=== PATIENT | female | born 1955 | race Hispanic/Latino ===

== ENCOUNTER 2017-05-27 03:29 | Inpatient (IN) | payer SELFPAY ==
[2017-05-27 03:30] VITALS: BMI 18.8
--- NOTE | 2017-05-27 03:44 | ED PDOC ---
Arrival/HPI - General Time Seen by Provider: 05/27/17 03:35 Historian: Patient - History of Present Illness Narrative History of Present Illness (Text): 05/27/17 03:42 Nasrin Pacheco is a 62 year old female who was found wandering the streets, was brought to the emergency department by EMS. Consistent with previous charts , patient is a poor historian. Patient has a history of schizophrenia and is acting bizarrely in the emergency department. States she feels like "walking around like ." Denies any somatic complaints. Symptom Onset: Gradual Symptom Course: Worsening Activities at Onset: Light Past Medical History - Provider Review Nursing Documentation Reviewed: Yes - Past History Past History: Unable to Obtain - Infectious Disease Hx of Infectious Diseases: None - Past Medical History Past Medical History: Unable to Obtain - Cardiac Hx Hypertension: No - Pulmonary Hx Tuberculosis: No - Neurological Hx Seizures: No - HEENT Hx HEENT Disorder: No - Renal Hx Renal Disorder: No - Endocrine/Metabolic Hx Endocrine Disorders: No - Hematological/Oncological Hx Cancer: No - Integumentary Hx Dermatological Disorder: No - Musculoskeletal/Rheumatological Hx Musculoskeletal Disorders: No Hx Falls: No - Gastrointestinal Hx Gastrointestinal Disorders: No - Genitourinary/Gynecological Hx Sexually Transmitted Diseases: No - Psychiatric Hx Depression: No Hx Schizophrenia: Yes Hx Substance Use: Yes - Past Surgical History Past Surgical History: Unable to Obtain - Surgical History Other/Comment: PT REPORTS HAVING SURGERY ON HER INSIDES. - Anesthesia Hx Anesthesia: No - Suicidal Assessment Feels Threatened In Home Enviroment: No Family/Social History - Physician Review Nursing Documentation Reviewed: Yes Family/Social History: No Known Family HX Smoking Status: Current Some Days Smoker Hx Alcohol Use: No Hx Substance Use: Yes Allergies/Home Meds Allergies/Adverse Reactions: Allergies No Known Allergies Allergy (Verified 05/26/17 04:50) Review of Systems - Physician Review All systems were reviewed & negative as marked: Yes - Review of Systems Constitutional: Normal. absent: Fatigue, Fevers Respiratory: Normal. absent: SOB, Cough, Sputum Cardiovascular: Normal Gastrointestinal: Normal Neurological: Normal. absent: Headache, Dizziness Psychiatric: Other (Schizophrenic ) Physical Exam Vital Signs Reviewed: Yes Vital Signs Temp Pulse Resp BP Pulse Ox 05/27/17 03:30 98.2 F 65 18 107/64 95 Temperature: Afebrile Blood Pressure: Normal Pulse: Regular Respiratory Rate: Normal Appearance: Positive for: Well-Appearing, Non-Toxic, Comfortable Pain Distress: None Mental Status: Positive for: Alert and Oriented X 3 - Systems Exam Head: Present: Atraumatic, Normocephalic Pupils: Present: PERRL Extroacular Muscles: Present: EOMI Conjunctiva: Present: Normal Mouth: Present: Moist Mucous Membranes Neck: Present: Normal Range of Motion Respiratory/Chest: Present: Clear to Auscultation, Good Air Exchange. No: Respiratory Distress, Accessory Muscle Use Cardiovascular: Present: Regular Rate and Rhythm, Normal S1, S2. No: Murmurs Abdomen: Present: Normal Bowel Sounds. No: Tenderness, Distention, Peritoneal Signs Upper Extremity: Present: Normal Inspection. No: Cyanosis, Edema Lower Extremity: Present: Normal Inspection. No: Edema Neurological: Present: GCS=15, CN II-XII Intact, Motor Func Grossly Intact, Normal Sensory Function Skin: Present: Warm, Dry, Normal Color. No: Rashes Psychiatric: Present: Alert, Oriented x 3 Medical Decision Making ED Course and Treatment: 05/27/17 03:49 Impression: A 62 year old female who presents to the emergency department for bizarre behavior. Plan: -- EKG -- Labs -- Alcohol level -- Drug screen -- CXR Progress Notes: - Lab Interpretations Lab Results: 05/27/17 04:20 05/27/17 04:20 Lab Results 05/27/17 04:20: WBC 6.1, RBC 4.00, Hgb 12.5, Hct 36.9, MCV 92.3, MCH 31.3, MCHC 33.9, RDW 14.3, Plt Count 194, MPV 11.6 H 05/27/17 04:20: Alcohol, Quantitative < 10 05/27/17 04:20: Sodium 135, Potassium 3.2 L, Chloride 100, Carbon Dioxide 20 L, Anion Gap 18, BUN 13, Creatinine 0.7, Est GFR ( Amer) > 60, Est GFR (Non- Af Amer) > 60, Random Glucose 96, Calcium 9.5, Total Bilirubin 1.1, AST 21, ALT 26, Alkaline Phosphatase 68, Total Protein 6.8, Albumin 4.1, Globulin 2.7, Albumin/Globulin Ratio 1.5 - RAD Interpretation Narrative RAD Interpretations (Text): 05/27/17 06:11 CXR- No acute process Radiology Orders: 05/27/17 03:43 CHEST PORTABLE [RAD] Stat Air Box Tester: ED Physician - EKG Interpretation EKG Interpretation (Text): 05/27/17 06:34 EKG- NSR @ 75,wavy baseline,no acute changes Interpreted by ED Physician: Yes Type: 12 lead EKG - Transfer of Care Patient signed out to Dr:: Chacha Pending Labs:: Medical clearance/PES evaluation/final disposition - Scribe Statement The provider has reviewed the documentation as recorded by the Sourave Aldo Granados Provider Attestation: All medical record entries made by the Sarah were at my direction and personally dictated by me. I have reviewed the chart and agree that the record accurately reflects my personal performance of the history, physical exam, medical decision making, and the department course for this patient. I have also personally directed, reviewed, and agree with the discharge instructions and disposition. Disposition/Present on Arrival - Present on Arrival Any Indicators Present on Arrival: No History of DVT/PE: No History of Uncontrolled Diabetes: No Urinary Catheter: No History Surgical Site Infection Following: None - Disposition Have Diagnosis and Disposition been Completed?: No Diagnosis: Schizophrenia Disposition Time: 07:00 Patient Problems: Current Active Problems Problem Status Onset Schizophrenia Acute Condition: STABLE
[2017-05-27 05:09] LABS: ALB/GLOB RATIO 1.5 (1.1-1.8); ALBUMIN 4.1 g/dL (3.0-4.8); ALT/SGPT 26 U/L (7-56); AST/SGOT 21 U/L (15-39); BLOOD UREA NITROGEN 13 mg/dL (7-21); CALCIUM 9.5 mg/dL (8.4-10.5); GFR AFRICAN-AMERICAN > 60; GFR NON-AFRICAN AMERICAN > 60
[2017-05-27 05:14] LABS: HEMOGLOBIN 12.5 gm/dL (12.0-16.0); MEAN CELL VOLUME 92.3 fL (80.0-105.0); MEAN CORPUSCULAR HEMOGLOBIN 31.3 pg (25.0-35.0); MEAN CORPUSCULAR HGB CONC 33.9 g/dl (31.0-37.0); MEAN PLATELET VOLUME 11.6 fl (7.0-11.0); RED CELL DISTRIBUTION WIDTH 14.3 % (11.5-14.5); WHITE BLOOD COUNT 6.1 10^3/ul (4.5-11.0)
[2017-05-27 08:28] VITALS: O2SAT 98
[2017-05-27] MEDS ORDERED: Potassium Chloride 20 mEq ER Tab PO STA (08:31)
--- NOTE | 2017-05-27 08:45 | CARD ---
APPROVED REPORT EKG Measurement Heart [id number] DC [id number] <Conclusion> Normal sinus rhythm Normal ECG
[2017-05-27] MEDS ORDERED: Divalproex 250 mg DR (BID formulation) PO SCH (09:15)
--- NOTE | 2017-05-27 11:01 | RAD ---
HISTORY: medical clearance COMPARISON: 05/24/2013 FINDINGS: LUNGS: No active pulmonary disease. PLEURA: No significant pleural effusion identified, no pneumothorax apparent. CARDIOVASCULAR: Normal. OSSEOUS STRUCTURES: No significant abnormalities. VISUALIZED UPPER ABDOMEN: Normal. OTHER FINDINGS: None. IMPRESSION: No active disease.
--- NOTE | 2017-05-27 11:36 | PCM.PSYCH ---
Initial Psychiatric Evaluation - Initial Psychiatric Evaluation Type of Admission: Voluntary Legal Status: Capacity (Patient has capacity to sign consent for treatment) Chief Complaint (in patient's own words): "A-A-A-A-A, you need to call me Nicolas, I need my potassium, I am not psych case , I am medical,,,, AAAAAAA" Patient's Reaction to Hospitalization: pt was admitted for evaluation of psychosis, inability to function, was disorganized in the community, was covered with feces, needs further evaluation and observation. pt does not feel she has mental illness, does not feel she needs to be on medications, no insight/poor judgment. 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 Pt obviously needs further evaluation and stabilization, meds resumption and titration. this wrier attempted to speak to the pt, pt presented to have very poor hygiene , poor ADLs most likely due to her psychosis, pt was agitated, was screaming out loud "A-A_A_A_A_A_A_ you need to call me NICOLAS, I am not psych patient, I need my potassium", pt also was screaming "A_A_A_A_A_ I don't want to talk to the doctor, I did not sign myself A_A_A_A_A you will poison me...." there is not option to have a meaningful conversation with her. pt presented to be in danger to self and was not able to calm down, other patients were scared, pt was medicated with Thorazine 50mg IM with good response. pt obviously paranoid/psychotic/responding to internal stimuli. initially refused to take any meds, which were confirmed from the previous admission Past psychiatric h/o: patient has long history of mental illness, as per Dr. Escalera's note in 2013 patient had history of been admitted involuntary in [facility] , patient has chronic noncompliance with the medications nd follow-up appointments, patient was on the following medications: Risperdal 3 mg 2 times a day Cogentin 0.5 mg twice a day Depakote 750 mg at the morning time in 1000 mg at the nighttime pt denied smoking, denied alcohol consumption, denied using drugs, but it is ?, as per h/o pt has h/o substance use. past medical h/o: denied, K was low, K supplementation offered in ED, pt refused , now is screaming demanding to have meds. D/w . 05/27/17 04:20 05/27/17 04:20 Lab Results 05/27/17 04:20: WBC 6.1, RBC 4.00, Hgb 12.5, Hct 36.9, MCV 92.3, MCH 31.3, MCHC 33.9, RDW 14.3, Plt Count 194, MPV 11.6 H 05/27/17 04:20: Alcohol, Quantitative < 10 05/27/17 04:20: Sodium 135, Potassium 3.2 L, Chloride 100, Carbon Dioxide 20 L, Anion Gap 18, BUN 13, Creatinine 0.7, Est GFR ( Amer) > 60, Est GFR (Non- Af Amer) > 60, Random Glucose 96, Calcium 9.5, Total Bilirubin 1.1, AST 21, ALT 26, Alkaline Phosphatase 68, Total Protein 6.8, Albumin 4.1, Globulin 2.7, Albumin/Globulin Ratio 1.5 Vital Signs Temp Pulse Resp BP Pulse Ox 05/27/17 08:00 78 16 122/61 98 05/27/17 05:30 70 16 112/68 97 05/27/17 03:30 98.2 F 65 18 107/64 95 Current Medications: Active Medications Generic Name Dose Route Start Last Admin Trade Name Freq PRN Reason Stop Dose Admin Benztropine Mesylate 0.5 mg 05/27/17 13:00 Cogentin PO TID CARL Diphenhydramine HCl 50 mg 05/27/17 09:15 Benadryl PO HS PRN Insomnia Divalproex Sodium 250 mg 05/27/17 09:15 Taj Carrillo (*Bid*) PO TID CARL Protocol Risperidone 1 mg 05/27/17 13:00 Risperdal Tab PO TID CARL Protocol this auto service writer attempted to discuss medications and risk/benefits and alternatives with pt, ? comprehension. Past Psychiatric History - Past Psychiatric History Previous Treatment History: Inpatient Prior Professional Help: see HPI Prior Psychiatric Treatment: see hPI At what hospital: see HPI Duration: see HPI Nature of Treatment: see HPI Explanation of prior treatment: see HPI History of Abuse: unable to obtain, pt is agitated, needed to be medicated History of ETOH/Drug Use: see hPI History of Family Illness: unable to obtain Pertinent Medical Hx (Current Medical&Sleep Prob, Allergies): Allergies Allergy/AdvReac Type Severity Reaction Status Date / Time No Known Allergies Allergy Verified 05/26/17 04:50 Benztropine [Cogentin] 1 mg PO BID #60 tab 04/16/17 Divalproex [Depakote DR] 500 mg PO BID #60 tcp 04/16/17 Divalproex [Depakote DR] 500 mg PO HS #30 tcp 04/16/17 fluPHENAZine [Prolixin] 10 mg PO BID #60 tab 04/16/17 risperiDONE [RisperDAL Tab] 3 mg PO BID #60 tab 04/16/17 traZODone [Desyrel] 50 mg PO HS #30 tab 04/16/17 Benztropine [Cogentin] 1 mg PO BID #60 tab 05/15/17 OXcarbazepine [Trileptal] 300 mg PO BID #60 tab 05/15/17 fluPHENAZine [Prolixin] 10 mg PO BID #60 tab 05/15/17 traZODone [Desyrel] 50 mg PO HS PRN #30 tab 05/15/17 Review of Systems - Review of Systems Systems not reviewed;Unavailable: Acuity of Condition - EENT Eyes: As Per HPI Ears: As Per HPI Nose/Mouth/Throat: As Per HPI - Breasts Breasts: As Per HPI - Cardiovascular Cardiovascular: As Per HPI - Respiratory Respiratory: As Per HPI - Gastrointestinal Gastrointestinal: As Per HPI - Genitourinary Genitourinary: As Per HPI - Reproductive: Female Reproductive:Female: As Per HPI - Menstruation Menstruation: As Per HPI - Musculoskeletal Musculoskeletal: As Par HPI - Integumentary Integumentary: As Per HPI - Neurological Neurological: As Per HPI - Psychiatric Psychiatric: As Per HPI - Endocrine Endocrine: As Per HPI - Hematologic/Lymphatic Hematologic: As Per HPI Mental Status Examination - Personal Presentation Personal Presentation: Looks younger than stated age - Affect Affect: Other (agitated, angry) - Motor Activity Motor Activity: Psychomotor Agitation - Reliability in Providing Information Reliability in Providing Information: Poor, due to alteration in thoughts, Poor , due to altered mood, Poor, due to cognitve impairment - Speech Speech: Disorganized, Irrelevant, Tangential - Mood Mood: Other ("aaaaa leave me alone") - Formal Thought Process Formal Thought Process: Hallucinations, Delusions, Paranoia, Loosening of associations, Circumstantial - Hallucinations/Delusions Hallucinations: Auditory Delusions: Granduer, Persecution - Obsessions/Compulsions Obsessions: None Compulsions: None - Cognitive Functions Orientation: Person Sensorium: Alert Attention/Concentration: Easily distracted Abstract Thinking: Ajo Estimate of Intelligence: Below average Judgement: Intact, as evidence by: Insight regarding need for hospitalization - Risk Risk: Suicidal, Self-mutilation, Diminished functioning - Limitations Limitations: Other (pt is homeless, noncompliant with meds, poor social support) DSM 5 DX - DSM 5 DSM 5 Diagnosis: r/o schizophrenia, paranoid type r/o schizoaffective - Recommended/Plan of Treatment Treatment Recommendations and Plan of Treatment: milieu, structure, supportive therapy will resume depakote 250 po tid for mood stabilzation will start cogentin 0.5 mg po tid for EPS symptoms will start Risperdal 1mg po tid for psychosis (pt is not neuroleptrically naive , could be initiated with higher doses) pt was on Prolixin in the past (10mg po bid), risperdal 3mg po bid, h/o being on depakote 500mg bid, trazodone 50mg hs, h/o trileptal 300mg bid, will consider to resume these meds accordingly d/w will f/u on labs SW evaluation for homelessness will monitor closely will give PRN medications. Projected ELOS: 10 days Prognosis: guarded Discharge Plan and Discharge Criteria: Pt will be not depressed or manic, will be more hopeful, will be not psychotic or anxious, will be tolerating medications well, will not have major side effects, will be able to function, will not pose threat to self or others. - Smoking Cessation Smoking Cessation Initiated: No Reason for not providing: pt was agitated, this auto service writer did not have an option to have meaningful cons
[2017-05-27] MEDS ORDERED: Potassium Chloride 20 mEq ER Tab PO ONE ×2 (18:00)
--- NOTE | 2017-05-27 18:34 | PCM.BM ---
<SimónAsha - Last Filed: 05/27/17 18:30> Treatment Plan Problems - Problems identified on initial assessmt psychotic delusions Date Initiated: 05/27/17 Time Initiated: 13:00 Assessment reference: NA Status: Active Priority: 1 homelessness Date Initiated: 05/27/17 Time Initiated: 18:00 Assessment reference: NA Status: Active Treatment assets and liabiliti Patient Assests: ADL independent, negotiates basic needs Patient Liabilities: live alone, financial problems, poor support system - Milieu Protocol Maintain good personal hygiene: every shift Encourage regular showers, every shift Remind patient to perform daily oral care, every shift Assist patient to perform ADL's Maintain personal safety: every shift Educate patient to report safety concerns to staff, every shift Monitor environment for contraband/sharps Medication safety: Monitor for expected outcome, potential side effects: every shift, Assess barriers to learning: every shift, Assess readiness for medication education: every shift Milieu Narrative: milieu, structure, supportive therapy will resume depakote 250 po tid for mood stabilzation will start cogentin 0.5 mg po tid for EPS symptoms will start Risperdal 1mg po tid for psychosis (pt is not neuroleptrically naive , could be initiated with higher doses) pt was on Prolixin in the past (10mg po bid), risperdal 3mg po bid, h/o being on depakote 500mg bid, trazodone 50mg hs, h/o trileptal 300mg bid, will consider to resume these meds accordingly d/w will f/u on labs SW evaluation for homelessness will monitor closely will give PRN medications. Family Contact - Goals for Treatment Patient goals for treatment: " I am sick and homeless, I lived in the street" Discharge/Continuing Care - Discharge Discharge Criteria: Free of Suicidal thoughts, Free of paranoid thoughts, Free of agitation, Normal sleep pattern, Ability to care for self - Additional Comments milieu, structure, supportive therapy will resume depakote 250 po tid for mood stabilzation will start cogentin 0.5 mg po tid for EPS symptoms will start Risperdal 1mg po tid for psychosis (pt is not neuroleptrically naive , could be initiated with higher doses) pt was on Prolixin in the past (10mg po bid), risperdal 3mg po bid, h/o being on depakote 500mg bid, trazodone 50mg hs, h/o trileptal 300mg bid, will consider to resume these meds accordingly d/w will f/u on labs SW evaluation for homelessness will monitor closely will give PRN medications. - Treatment Team Participation Patient/Family/SO Statement: milieu, structure, supportive therapy will resume depakote 250 po tid for mood stabilzation will start cogentin 0.5 mg po tid for EPS symptoms will start Risperdal 1mg po tid for psychosis (pt is not neuroleptrically naive , could be initiated with higher doses) pt was on Prolixin in the past (10mg po bid), risperdal 3mg po bid, h/o being on depakote 500mg bid, trazodone 50mg hs, h/o trileptal 300mg bid, will consider to resume these meds accordingly d/w will f/u on labs SW evaluation for homelessness will monitor closely will give PRN medications. <Efrain Shultz - Last Filed: 05/28/17 11:50> Discharge/Continuing Care - Education Needs Education Needs: Family Medication, Family Diagnosis/Disease Process, Family Coping Skills, Family Anger Management skills, Family Activities of Daily Living , Family Health Practices/Safety, Family Personal Hygiene/Grooming, Family Aftercare Safety Plan <Mary Ann Amaral - Last Filed: 05/29/17 08:34> Family Contact Family involvement: No known Family/SO (Patient has no known family.)
[2017-05-28 07:40] LABS: BLOOD UREA NITROGEN 10 mg/dL (7-21); CALCIUM 8.7 mg/dL (8.4-10.5); GFR AFRICAN-AMERICAN > 60; GFR NON-AFRICAN AMERICAN > 60
--- NOTE | 2017-05-28 11:36 | CP.PCM.CON ---
<ARY COLEMAN - Last Filed: 05/28/17 17:15> History of Present Illness - History of Present Illness History of Present Illness: Medicine Consult Note: 62 F with past medical hx of mental illness, most likely schizophrenia spectrum disorder, and multiple psychiatric admissions presents as consult for medical management. Pt is homeless and was found wandering the streets, was brought to the emergency department by EMS. Pt is still confused with psychotic type symptoms, therefore HPI limited. Pt denied any medical problems. Pt denied n/v/f , cp, sob, abdominal pain. Review of Systems - Review of Systems All systems: reviewed and no additional remarkable complaints except (as per HPI ) Past Patient History - Infectious Disease Hx of Infectious Diseases: None - Past Social History Smoking Status: Current Some Days Smoker - CARDIAC Hx Hypertension: No - PULMONARY Hx Respiratory Disorders: No Hx Tuberculosis: No - NEUROLOGICAL Hx Seizures: No - HEENT Hx HEENT Problems: No - RENAL Hx Chronic Kidney Disease: No - ENDOCRINE/METABOLIC Hx Endocrine Disorders: No - HEMATOLOGICAL/ONCOLOGICAL Hx Cancer: No - INTEGUMENTARY Hx Dermatological Problems: No - MUSCULOSKELETAL/RHEUMATOLOGICAL Hx Musculoskeletal Disorders: No Hx Falls: No - GASTROINTESTINAL Hx Gastrointestinal Disorders: No - GENITOURINARY/GYNECOLOGICAL Hx Sexually Transmitted Disorders: No - PSYCHIATRIC Hx Substance Use: Yes - SURGICAL HISTORY Other/Comment: PT REPORTS HAVING SURGERY ON HER INSIDES. - ANESTHESIA Hx Anesthesia: No Meds Allergies/Adverse Reactions: Allergies Allergy/AdvReac Type Severity Reaction Status Date / Time No Known Allergies Allergy Verified 05/27/17 19:06 - Medications Medications: Current Medications Benztropine Mesylate (Cogentin) 0.5 mg PO TID CARL Last Admin: 05/28/17 08:45 Dose: 0.5 mg Chlorpromazine (Thorazine) 50 mg IM Q6H PRN; Protocol PRN Reason: severe agitation and psychosis Last Admin: 05/27/17 09:42 Dose: 50 mg Diphenhydramine HCl (Benadryl) 50 mg PO HS PRN PRN Reason: Insomnia Famotidine (Pepcid) 20 mg PO HS CARL Risperidone (Risperdal Tab) 1 mg PO TID CARL PRN Reason: Protocol Last Admin: 05/28/17 08:43 Dose: 1 mg Trazodone HCl (Desyrel) 50 mg PO HS CARL Last Admin: 05/27/17 22:07 Dose: Not Given Valproate Sodium (Depakene) 250 mg PO TID COUNT INCLUDES THE [facility] Last Admin: 05/28/17 08:43 Dose: 250 mg Physical Exam - Constitutional Appears: Agitated - Head Exam Head Exam: NORMAL INSPECTION - Eye Exam Eye Exam: EOMI, Normal appearance - ENT Exam ENT Exam: Mucous Membranes Moist - Respiratory Exam Respiratory Exam: Clear to Auscultation Bilateral - Cardiovascular Exam Cardiovascular Exam: REGULAR RHYTHM, +S1, +S2 - GI/Abdominal Exam GI & Abdominal Exam: Normal Bowel Sounds, Soft - Neurological Exam Neurological exam: Alert, Oriented x3 - Psychiatric Exam Psychiatric exam: Agitated Results - Vital Signs Recent Vital Signs: Last Vital Signs Temp 98.2 F 05/27/17 03:30 Pulse 60 05/27/17 17:55 Resp 18 05/27/17 17:55 BP 122/61 05/27/17 08:00 Pulse Ox 98 05/27/17 08:00 - Labs Result Diagrams: 05/27/17 04:20 05/28/17 07:00 Labs: Laboratory Results - last 24 hr 05/28/17 07:00 Sodium 141 Potassium 3.8 Chloride 108 H Carbon Dioxide 26 Anion Gap 11 BUN 10 Creatinine 0.6 Est GFR ( Amer) > 60 Est GFR (Non-Af Amer) > 60 Random Glucose 83 Calcium 8.7 Assessment & Plan - Assessment and Plan (Free Text) Assessment: 62F admitted for psychosis and inability to function 1. Psychosis -Treatment plan per psych 2. Hypokalemia - resolved -Corrected with Potassium Chloride 40 mg PO 3. GI/DVT PPx -Pepcid -Pt ambulatory Patient was seen and discussed in detail with Dr. Bain. <Wes Bain - Last Filed: 05/28/17 17:39> Meds - Medications Medications: Current Medications Benztropine Mesylate (Cogentin) 0.5 mg PO TID COUNT INCLUDES THE [facility] Last Admin: 05/28/17 17:28 Dose: 0.5 mg Diphenhydramine HCl (Benadryl) 50 mg PO HS PRN PRN Reason: Insomnia Diphenhydramine HCl (Benadryl) 50 mg PO Q6H PRN PRN Reason: Agitation Last Admin: 05/28/17 12:03 Dose: 50 mg Famotidine (Pepcid) 20 mg PO HS CARL Haloperidol (Haldol) 5 mg PO Q6H PRN; Protocol PRN Reason: Agitation Last Admin: 05/28/17 12:03 Dose: 5 mg Lorazepam (Ativan) 2 mg PO Q6H PRN; Protocol PRN Reason: Agitation Last Admin: 05/28/17 12:03 Dose: 2 mg Risperidone (Risperdal Tab) 1 mg PO TID CARL PRN Reason: Protocol Last Admin: 05/28/17 17:28 Dose: 1 mg Trazodone HCl (Desyrel) 50 mg PO HS CARL Last Admin: 05/27/17 22:07 Dose: Not Given Valproate Sodium (Depakene) 500 mg PO [facility] COUNT INCLUDES THE [facility] Results - Vital Signs Recent Vital Signs: Last Vital Signs Temp 98.2 F 05/27/17 03:30 Pulse 60 05/27/17 17:55 Resp 18 05/27/17 17:55 BP 122/61 05/27/17 08:00 Pulse Ox 98 05/27/17 08:00 - Labs Result Diagrams: 05/27/17 04:20 05/28/17 07:00 Labs: Laboratory Results - last 24 hr 05/28/17 07:00 Sodium 141 Potassium 3.8 Chloride 108 H Carbon Dioxide 26 Anion Gap 11 BUN 10 Creatinine 0.6 Est GFR ( Amer) > 60 Est GFR (Non-Af Amer) > 60 Random Glucose 83 Calcium 8.7 Attending/Attestation - Attestation I have personally seen and examined this patient.: Yes I have fully participated in the care of the patient.: Yes I have reviewed all pertinent clinical information: Yes Notes (Text): 05/28/17 17:35 MEDICAL CONSULTATION 62 year old female with past medical history of ?schizophrenia who is currently admitted for evaluation of psychosis and paranoia. History was reviewed with resident. Further history is limited due to psychotic symptoms (patient yells and screams at times; refuses exam and questions). Continue with management as per psychiatrist. Labs revealed initial low potassium of 3.4 which was repleted yesterday. Repeat potassium today was okay. At this time we will sign off. Please feel free to re-consult as needed. Wes Bain MD Hospitalist.
--- NOTE | 2017-05-28 13:25 | PCM.BM ---
- Diagnosis (1) Schizophrenia Status: Acute Interventions: 05/27/17 13:14 Psychoeducation/psychotherapy Psychopharmacology/adjustment of medications as needed/ monitoring possible side effects Evaluate pt on daily basis Compliance with medications and follow up appointments Long acting medication if pt is noncompliant with pill form Suicide and homicide risk assessment and prevention, coping strategies, safety plan Relapse prevention Reduction of symptoms Improve functional status Possible assertive community treatment Cognitive behavioral therapy Family intervention Possible social skill training as outpatient (2) History of medical problems Status: Acute Interventions: 05/27/17 13:15 Pt will be seen by medical team as needed Medications will be confirmed and resumed Additional consultation by specialists as needed Lab work as needed (CBC, CMP, TSH, free T4, UA, Urine test for females as needed) CXR as needed EKG Physical therapy valuation as needed - Milieu Protocol Milieu Narrative: milieu, structure, supportive therapy will resume depakote 250 po tid for mood stabilzation will start cogentin 0.5 mg po tid for EPS symptoms will start Risperdal 1mg po tid for psychosis (pt is not neuroleptrically naive , could be initiated with higher doses) pt was on Prolixin in the past (10mg po bid), risperdal 3mg po bid, h/o being on depakote 500mg bid, trazodone 50mg hs, h/o trileptal 300mg bid, will consider to resume these meds accordingly d/w will f/u on labs SW evaluation for homelessness will monitor closely will give PRN medications. Discharge/Continuing Care - Additional Comments milieu, structure, supportive therapy will resume depakote 250 po tid for mood stabilzation will start cogentin 0.5 mg po tid for EPS symptoms will start Risperdal 1mg po tid for psychosis (pt is not neuroleptrically naive , could be initiated with higher doses) pt was on Prolixin in the past (10mg po bid), risperdal 3mg po bid, h/o being on depakote 500mg bid, trazodone 50mg hs, h/o trileptal 300mg bid, will consider to resume these meds accordingly d/w will f/u on labs SW evaluation for homelessness will monitor closely will give PRN medications. - Treatment Team Participation Patient/Family/SO Statement: milieu, structure, supportive therapy will resume depakote 250 po tid for mood stabilzation will start cogentin 0.5 mg po tid for EPS symptoms will start Risperdal 1mg po tid for psychosis (pt is not neuroleptrically naive , could be initiated with higher doses) pt was on Prolixin in the past (10mg po bid), risperdal 3mg po bid, h/o being on depakote 500mg bid, trazodone 50mg hs, h/o trileptal 300mg bid, will consider to resume these meds accordingly d/w will f/u on labs SW evaluation for homelessness will monitor closely will give PRN medications.
--- NOTE | 2017-05-28 13:55 | PCM.PYCHPN ---
Psychiatric Progress Note - Psychiatric Progress Note Patient seen today, length of contact: 30min Patient Chief Complaint: "you work in [facility], what do you mean that you are not? yes you ARE, yes you ARE, yes you ARE, yes you ARE, yes you ARE" "I don't want to talk to you, you are stupid psychiatrist....", "I don't want to talk to you, nurse either...", "call me an liana..." Problems Identified/Issues Discussed: Suicide/ homicide prevention, past psychiatric h/o, current psychiatric symptoms , medical problems, risk/benefits and alternatives of medications, medications compliance, coping strategies, substance abuse h/o, relapse prevention, importance of follow up with psychiatrist and therapist, discharge plan. Medical Problems: electrolytes abnormalities Diagnostic Results: 05/27/17 04:20 05/28/17 07:00 Lab Results 05/28/17 07:00: Sodium 141, Potassium 3.8, Chloride 108 H, Carbon Dioxide 26, Anion Gap 11, BUN 10, Creatinine 0.6, Est GFR ( Amer) > 60, Est GFR (Non- Af Amer) > 60, Random Glucose 83, Calcium 8.7 05/27/17 04:20: WBC 6.1, RBC 4.00, Hgb 12.5, Hct 36.9, MCV 92.3, MCH 31.3, MCHC 33.9, RDW 14.3, Plt Count 194, MPV 11.6 H 05/27/17 04:20: Alcohol, Quantitative < 10 05/27/17 04:20: Sodium 135, Potassium 3.2 L, Chloride 100, Carbon Dioxide 20 L, Anion Gap 18, BUN 13, Creatinine 0.7, Est GFR ( Amer) > 60, Est GFR (Non- Af Amer) > 60, Random Glucose 96, Calcium 9.5, Total Bilirubin 1.1, AST 21, ALT 26, Alkaline Phosphatase 68, Total Protein 6.8, Albumin 4.1, Globulin 2.7, Albumin/Globulin Ratio 1.5 Vital Signs Temp Pulse Pulse Resp BP Pulse Ox 05/27/17 17:55 60 18 05/27/17 08:00 78 16 122/61 98 05/27/17 05:30 70 16 112/68 97 05/27/17 03:30 98.2 F 65 18 107/64 95 DSM 5 Symptoms Update: shortly pt is 62yo Female, long and debilitated h/o mental illness, most likely schizophrenia spectrum disorder, multiple psychiatric admissions including [facility] under involuntary commitment, as well as to this hospital (most recent 2012), pt is homeless, was found in [facility], covered with feces, agitated, confused, psychotic, asked to bring her to [facility] because she was "suicidal", pt presented to be disorganized, agitated, needed to be medicated with Haldol in ED. Pt obviously needs further evaluation and stabilization, meds resumption and titration. this wrier attempted to speak to the pt today at the treatment team meeting, personal hygiene is somewhat better, but psychosis is the same. Pt came in the room with no invitation, said that she remember this repairer typewriter from [facility], when this repairer typewriter let t know that this repairer typewriter never worked in [facility] pt started to yell : "you work in [facility], what do you mean that you are not? yes you ARE, yes you ARE, yes you ARE, yes you ARE, yes you ARE" "I don't want to talk to you, you are stupid psychiatrist....", "I don't want to talk to you, nurse either...", "call me an liana...""you ain't no God damn doctor!", "you tried taking over the hospital!", "you want me to kill myself?!", there is no option to have a meaningful conversation, pt was keep yelling, pt needed to be medicated with Haldol+Benadryl+Ativan PO, pt cursed at the RN, but took meds. Yesterday pt was medicated with Thorazine 50mg IM with good response, pt was agitated. pt obviously paranoid/psychotic/responding to internal stimuli. past medical h/o: denied, K was low, K supplementation offered in ED, pt refused , now is screaming demanding to have meds. D/w . pt was followed up by [facility] PA[facility], will call for collaterals. pt tolerates medications well, no side effects observed or reported, aims 0, no EPS Impression: schizophrenia versus schizoaffective disorder Medication Change: Yes (Depakote was increased when necessary medications changed) Medical Record Reviewed: Yes Consults ordered or reviewed: medical consult was called Mental Status Examination - Cognitive Function Orientation: Person Memory: Intact Attention: Poor Concentration: Poor Association: Loose Fund of Knowledge: Poor - Mood Mood: Depressed (angry), Other ("aaaaa leave me alone") - Affect Affect: Constricted (iincrease), Other (agitated, angry) - Speech Speech: Loud, Pressured - Formal Thought Process Formal Thought Process: Hallucinations, Delusions, Paranoia, Loosening of associations, Circumstantial - Suicidal Ideation Suicidal Ideation: Yes Plan: patient was threatening, but denied any intent or plan - Homicidal Ideation Homicidal Ideation: No Goal/Treatment Plan - Goal/Treatment Plan Need for Continued Stay: Remain at risks for inpatient hospitalization, Severe depression anxiety, Discharge may exacerbated symptoms, Severe functional impairment Progress Toward Problem(s) and Goals/Treatment Plan: milieu, structure, supportive therapy we'll increase depakote 500 mg twice a day for mood stabilzation cogentin 0.5 mg po tid for EPS symptoms Risperdal 1mg po tid for psychosis (pt is not neuroleptrically naive, could be initiated with higher doses) pt was on Prolixin in the past (10mg po bid), risperdal 3mg po bid, h/o being on depakote 500mg bid, trazodone 50mg hs, h/o trileptal 300mg bid, will consider to resume these meds accordingly when necessary medication was changed to haloperidol plus Benadryl plus Ativan every 6 hours by mouth and IM as needed d/w will f/u on labs SW evaluation for homelessness will monitor closely will give PRN medications. Estimated Date of D/C: 06/06/17 (we'll monitor on daily basis)
[2017-05-29 07:42] VITALS: RESP 20
--- NOTE | 2017-05-29 15:14 | PCM.PYCHPN ---
Psychiatric Progress Note - Psychiatric Progress Note Patient seen today, length of contact: 30min Patient Chief Complaint: "...." Problems Identified/Issues Discussed: Suicide/ homicide prevention, past psychiatric h/o, current psychiatric symptoms , medical problems, risk/benefits and alternatives of medications, medications compliance, coping strategies, substance abuse h/o, relapse prevention, importance of follow up with psychiatrist and therapist, discharge plan. Medical Problems: electrolytes abnormalities Diagnostic Results: 05/27/17 04:20 05/28/17 07:00 Lab Results 05/28/17 07:00: Sodium 141, Potassium 3.8, Chloride 108 H, Carbon Dioxide 26, Anion Gap 11, BUN 10, Creatinine 0.6, Est GFR ( Amer) > 60, Est GFR (Non- Af Amer) > 60, Random Glucose 83, Calcium 8.7 05/27/17 04:20: WBC 6.1, RBC 4.00, Hgb 12.5, Hct 36.9, MCV 92.3, MCH 31.3, MCHC 33.9, RDW 14.3, Plt Count 194, MPV 11.6 H 05/27/17 04:20: Alcohol, Quantitative < 10 05/27/17 04:20: Sodium 135, Potassium 3.2 L, Chloride 100, Carbon Dioxide 20 L, Anion Gap 18, BUN 13, Creatinine 0.7, Est GFR ( Amer) > 60, Est GFR (Non- Af Amer) > 60, Random Glucose 96, Calcium 9.5, Total Bilirubin 1.1, AST 21, ALT 26, Alkaline Phosphatase 68, Total Protein 6.8, Albumin 4.1, Globulin 2.7, Albumin/Globulin Ratio 1.5 Vital Signs Temp Pulse Pulse Resp BP Pulse Ox 05/27/17 17:55 60 18 05/27/17 08:00 78 16 122/61 98 05/27/17 05:30 70 16 112/68 97 05/27/17 03:30 98.2 F 65 18 107/64 95 DSM 5 Symptoms Update: shortly pt is 62yo Female, long and debilitated h/o mental illness, most likely schizophrenia spectrum disorder, multiple psychiatric admissions including [facility] under involuntary commitment, as well as to this hospital (most recent 2012), pt is homeless, was found in [place], covered with feces, agitated, confused, psychotic, asked to bring her to [facility] because she was "suicidal", pt presented to be disorganized, agitated, needed to be medicated with Haldol in ED. Pt obviously needs further evaluation and stabilization, meds resumption and titration. this wrier attempted to speak to the pt today pt still angry, paranoid, was giving angry looks towards this telegraphic typewriter operator, when this telegraphic typewriter operator attempted to speak to the pt, pt was keep walking away from this telegraphic typewriter operator. as per staff pt compliant with meds, at times cursing, but no agitation, no PRN IM so far. SW spoke to [facility] PA[facility], they will visit pt tomorrow. pt obviously paranoid/psychotic/responding to internal stimuli. past medical h/o: denied, K was low, K supplementation offered in ED, pt refused , now is screaming demanding to have meds. D/w . pt tolerates medications well, no side effects observed or reported, aims 0, no EPS Impression: schizophrenia versus schizoaffective disorder Medication Change: Yes (Depakote was increased when necessary medications changed) Medical Record Reviewed: Yes Consults ordered or reviewed: medical consult was called Mental Status Examination - Cognitive Function Orientation: Person Memory: Intact Attention: Poor Concentration: Poor Association: Loose Fund of Knowledge: Poor - Mood Mood: Depressed (angry), Other ("aaaaa leave me alone") - Affect Affect: Constricted (iincrease), Other (agitated, angry) - Speech Speech: Loud, Pressured - Formal Thought Process Formal Thought Process: Hallucinations, Delusions, Paranoia, Loosening of associations, Circumstantial - Suicidal Ideation Suicidal Ideation: Yes - Homicidal Ideation Homicidal Ideation: No Goal/Treatment Plan - Goal/Treatment Plan Need for Continued Stay: Remain at risks for inpatient hospitalization, Severe depression anxiety, Discharge may exacerbated symptoms, Severe functional impairment Progress Toward Problem(s) and Goals/Treatment Plan: milieu, structure, supportive therapy we'll increase depakote 500 mg twice a day for mood stabilzation cogentin 1 mg po bid for EPS symptoms Risperdal 2mg bid for psychosis (pt is not neuroleptrically naive, could be initiated with higher doses) pt was on Prolixin in the past (10mg po bid), risperdal 3mg po bid, h/o being on depakote 500mg bid, trazodone 50mg hs, h/o trileptal 300mg bid, will consider to resume these meds accordingly when necessary medication was changed to haloperidol plus Benadryl plus Ativan every 6 hours by mouth and IM as needed d/w will f/u on labs SW evaluation for homelessness will monitor closely will give PRN medications. Estimated Date of D/C: 06/06/17 (we'll monitor on daily basis)
--- NOTE | 2017-05-30 15:59 | PCM.PYCHPN ---
Psychiatric Progress Note - Psychiatric Progress Note Patient seen today, length of contact: 30min Patient Chief Complaint: "Leave me alone, I don't want to speak to you....[id number]-" Problems Identified/Issues Discussed: Suicide/ homicide prevention, past psychiatric h/o, current psychiatric symptoms , medical problems, risk/benefits and alternatives of medications, medications compliance, coping strategies, substance abuse h/o, relapse prevention, importance of follow up with psychiatrist and therapist, discharge plan. Medical Problems: electrolytes abnormalities Diagnostic Results: 05/27/17 04:20 05/28/17 07:00 Lab Results 05/28/17 07:00: Sodium 141, Potassium 3.8, Chloride 108 H, Carbon Dioxide 26, Anion Gap 11, BUN 10, Creatinine 0.6, Est GFR ( Amer) > 60, Est GFR (Non- Af Amer) > 60, Random Glucose 83, Calcium 8.7 05/27/17 04:20: WBC 6.1, RBC 4.00, Hgb 12.5, Hct 36.9, MCV 92.3, MCH 31.3, MCHC 33.9, RDW 14.3, Plt Count 194, MPV 11.6 H 05/27/17 04:20: Alcohol, Quantitative < 10 05/27/17 04:20: Sodium 135, Potassium 3.2 L, Chloride 100, Carbon Dioxide 20 L, Anion Gap 18, BUN 13, Creatinine 0.7, Est GFR ( Amer) > 60, Est GFR (Non- Af Amer) > 60, Random Glucose 96, Calcium 9.5, Total Bilirubin 1.1, AST 21, ALT 26, Alkaline Phosphatase 68, Total Protein 6.8, Albumin 4.1, Globulin 2.7, Albumin/Globulin Ratio 1.5 Vital Signs Temp Pulse Pulse Resp BP Pulse Ox 05/27/17 17:55 60 18 05/27/17 08:00 78 16 122/61 98 05/27/17 05:30 70 16 112/68 97 05/27/17 03:30 98.2 F 65 18 107/64 95 Temp Pulse Resp BP Pulse Ox 97.8 F 100 H 20 96/60 L 98 05/29/17 07:41 05/29/17 15:00 05/29/17 07:41 05/29/17 15:00 05/27/17 08:00 DSM 5 Symptoms Update: shortly pt is 62yo Female, long and debilitated h/o mental illness, most likely schizophrenia spectrum disorder, multiple psychiatric admissions including [facility] under involuntary commitment, as well as to this hospital (most recent 2012), pt is homeless, was found in [facility], covered with feces, agitated, confused, psychotic, asked to bring her to [facility] because she was "suicidal", pt presented to be disorganized, agitated, needed to be medicated with Haldol in ED. Pt obviously needs further evaluation and stabilization, meds resumption and titration. this wrier attempted to speak to the pt today, pt s/p PRN meds, deeply sleeping , as per staff pt needed to be medicated because of severe psychosis and agitation, pt was calling other pt "N"word, was screaming racial remarks, needed to directed to her room and medicated. pt then woke up and requested to speak to this ticket writer, this ticket writer approach her with RN, pt was screaming out loud "leave me alone, I don't want to talk to you...", was crying out loud without any obvious reasons. [facility] PA[facility] attempted to speak today, pt was screaming that she does not want to talk to nobody. pt obviously paranoid/psychotic/responding to internal stimuli. as per staff, pt has good appetite and sleep, besides verbal abuse, no physical abuse. pt tolerates medications well, no side effects observed or reported, aims 0, no EPS Impression: schizophrenia versus schizoaffective disorder Medication Change: Yes (depakote was increased) Medical Record Reviewed: Yes Consults ordered or reviewed: medical consult was called Mental Status Examination - Cognitive Function Orientation: Person Memory: Intact Attention: Poor Concentration: Poor Association: Loose Fund of Knowledge: Poor - Mood Mood: Depressed (angry), Other ("aaaaa leave me alone") - Affect Affect: Constricted (iincrease), Other (agitated, angry) - Speech Speech: Loud, Pressured - Formal Thought Process Formal Thought Process: Hallucinations, Delusions, Paranoia, Loosening of associations, Circumstantial - Suicidal Ideation Suicidal Ideation: Yes - Homicidal Ideation Homicidal Ideation: No Goal/Treatment Plan - Goal/Treatment Plan Need for Continued Stay: Remain at risks for inpatient hospitalization, Severe depression anxiety, Discharge may exacerbated symptoms, Severe functional impairment Progress Toward Problem(s) and Goals/Treatment Plan: milieu, structure, supportive therapy we'll increase depakote 500 mg three times a day for mood stabilzation cogentin 1 mg po bid for EPS symptoms Risperdal 2mg bid for psychosis (pt is not neuroleptrically naive, could be initiated with higher doses) pt was on Prolixin in the past (10mg po bid), risperdal 3mg po bid, h/o being on depakote 500mg bid, trazodone 50mg hs, h/o trileptal 300mg bid, will consider to resume these meds accordingly when necessary medication was changed to haloperidol plus Benadryl plus Ativan every 6 hours by mouth and IM as needed d/w will f/u on labs SW evaluation for homelessness will monitor closely will give PRN medications. Estimated Date of D/C: 06/06/17 (we'll monitor on daily basis)
[2017-05-30] MEDS: Divalproex 500 mg DR(BID formulation) PO SCH ×2 (17:38→17:50)
--- NOTE | 2017-05-31 12:13 | PCM.PYCHPN ---
Psychiatric Progress Note - Psychiatric Progress Note Patient seen today, length of contact: 30min Patient Chief Complaint: "Leave me alone......" Problems Identified/Issues Discussed: Suicide/ homicide prevention, past psychiatric h/o, current psychiatric symptoms , medical problems, risk/benefits and alternatives of medications, medications compliance, coping strategies, substance abuse h/o, relapse prevention, importance of follow up with psychiatrist and therapist, discharge plan. Medical Problems: electrolytes abnormalities Diagnostic Results: 05/27/17 04:20 05/28/17 07:00 Lab Results 05/28/17 07:00: Sodium 141, Potassium 3.8, Chloride 108 H, Carbon Dioxide 26, Anion Gap 11, BUN 10, Creatinine 0.6, Est GFR ( Amer) > 60, Est GFR (Non- Af Amer) > 60, Random Glucose 83, Calcium 8.7 05/27/17 04:20: WBC 6.1, RBC 4.00, Hgb 12.5, Hct 36.9, MCV 92.3, MCH 31.3, MCHC 33.9, RDW 14.3, Plt Count 194, MPV 11.6 H 05/27/17 04:20: Alcohol, Quantitative < 10 05/27/17 04:20: Sodium 135, Potassium 3.2 L, Chloride 100, Carbon Dioxide 20 L, Anion Gap 18, BUN 13, Creatinine 0.7, Est GFR ( Amer) > 60, Est GFR (Non- Af Amer) > 60, Random Glucose 96, Calcium 9.5, Total Bilirubin 1.1, AST 21, ALT 26, Alkaline Phosphatase 68, Total Protein 6.8, Albumin 4.1, Globulin 2.7, Albumin/Globulin Ratio 1.5 Vital Signs Temp Pulse Pulse Resp BP Pulse Ox 05/27/17 17:55 60 18 05/27/17 08:00 78 16 122/61 98 05/27/17 05:30 70 16 112/68 97 05/27/17 03:30 98.2 F 65 18 107/64 95 Temp Pulse Resp BP Pulse Ox 97.8 F 100 H 20 96/60 L 98 05/29/17 07:41 05/29/17 15:00 05/29/17 07:41 05/29/17 15:00 05/27/17 08:00 Temp Pulse Resp BP Pulse Ox 97.8 F 100 H 20 96/60 L 98 05/29/17 07:41 05/29/17 15:00 05/29/17 07:41 05/29/17 15:00 05/27/17 08:00 DSM 5 Symptoms Update: shortly pt is 62yo Female, long and debilitated h/o mental illness, most likely schizophrenia spectrum disorder, multiple psychiatric admissions including [facility] under involuntary commitment, as well as to this hospital (most recent 2012), pt is homeless, was [facility] in [facility], covered with feces, agitated, confused, psychotic, asked to bring her to [facility] because she was "suicidal", pt presented to be disorganized, agitated, needed to be medicated with Haldol in ED. Pt obviously needs further evaluation and stabilization, meds resumption and titration. RN called this screenplay writer at the morning time reported that patient is acting out, patient is psychotic, agitated, R and was advised to medicate patient with the Haldol Ativan. This screenplay writer attempted to speak to the patient at the morning time, patient laying down on the bed, covered her had with blanket, in the dark, refused to talk, when this screenplay writer attempted to wake patient up patient started to scream "leave me alone". Patient has tendency of refusing to speak to this screenplay writer and other physicians, periods of agitation, needs to have when necessary medications , when patient is much calmer requesting to be seen by this screenplay writer, when this screenplay writer approach patient patient refusing to talk to her. pt asked PCP to call her "boy", pt is still psychotic, disorganized, impulses unpredictable. pt obviously paranoid/psychotic/responding to internal stimuli. [facility] PACT attempted to speak 05/30/17, pt was screaming that she does not want to talk to nobody. as per staff, pt has good appetite and sleep, verbally abusive, no aggression. pt tolerates medications well, no side effects observed or reported, aims 0, no EPS Impression: schizophrenia versus schizoaffective disorder Medication Change: Yes (risperdal increased) Medical Record Reviewed: Yes Consults ordered or reviewed: medical consult was called Mental Status Examination - Cognitive Function Orientation: Person Memory: Intact Attention: Poor Concentration: Poor Association: Loose Fund of Knowledge: Poor - Mood Mood: Depressed (angry), Other ("aaaaa leave me alone") - Affect Affect: Constricted (iincrease), Other (agitated, angry) - Speech Speech: Loud, Pressured - Formal Thought Process Formal Thought Process: Hallucinations, Delusions, Paranoia, Loosening of associations, Circumstantial - Suicidal Ideation Suicidal Ideation: Yes - Homicidal Ideation Homicidal Ideation: No Goal/Treatment Plan - Goal/Treatment Plan Need for Continued Stay: Remain at risks for inpatient hospitalization, Severe depression anxiety, Discharge may exacerbated symptoms, Severe functional impairment Progress Toward Problem(s) and Goals/Treatment Plan: milieu, structure, supportive therapy we'll increase depakote 500 mg three times a day for mood stabilzation cogentin 1 mg po bid and HS for EPS symptoms Risperdal 2mg bid ant hs for psychosis pt was on Prolixin in the past (10mg po bid), risperdal 3mg po bid, h/o being on depakote 500mg bid, trazodone 50mg hs, h/o trileptal 300mg bid, will consider to resume these meds accordingly when necessary medication was changed to haloperidol plus Benadryl plus Ativan every 6 hours by mouth and IM as needed d/w will f/u on labs SW evaluation for homelessness will monitor closely will give PRN medications. Estimated Date of D/C: 06/06/17 (we'll monitor on daily basis)
[2017-05-31] MEDS: Divalproex 500 mg DR(BID formulation) PO SCH (17:32)
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
--- NOTE | 2017-06-04 08:54 | PCM.BM ---
<Mary Ann Amaral - Last Filed: 06/04/17 08:54> Treatment Plan Problems - Problems identified on initial assessmt psychotic delusions Date Initiated: 05/27/17 Time Initiated: 13:00 Assessment reference: NA Status: Active Priority: 1 homelessness Date Initiated: 05/27/17 Time Initiated: 18:00 Assessment reference: NA Status: Active Treatment assets and liabiliti Patient Assests: ADL independent, negotiates basic needs Patient Liabilities: live alone, financial problems, poor support system - Milieu Protocol Maintain good personal hygiene: every shift Encourage regular showers, every shift Remind patient to perform daily oral care, every shift Assist patient to perform ADL's Maintain personal safety: every shift Educate patient to report safety concerns to staff, every shift Monitor environment for contraband/sharps Medication safety: Monitor for expected outcome, potential side effects: every shift, Assess barriers to learning: every shift, Assess readiness for medication education: every shift Milieu Narrative: milieu, structure, supportive therapy depakote 500 mg three times a day for mood stabilzation cogentin 1 mg po tid and HS for EPS symptoms Risperdal 3mg tid ant hs for psychosis pt was on Prolixin in the past (10mg po bid), risperdal 3mg po bid, h/o being on depakote 500mg bid, trazodone 50mg hs, h/o trileptal 300mg bid, will consider to resume these meds accordingly when necessary medication was changed to haloperidol plus Benadryl plus Ativan every 6 hours by mouth and IM as needed d/w will f/u on labs SW evaluation for homelessness will monitor closely will give PRN medications. Family Contact Family involvement: No known Family/SO (Patient has no known family.) - Goals for Treatment Patient goals for treatment: " I am sick and homeless, I lived in the street" Discharge/Continuing Care - Education Needs Education Needs: Family Medication, Family Diagnosis/Disease Process, Family Coping Skills, Family Anger Management skills, Family Activities of Daily Living , Family Health Practices/Safety, Family Personal Hygiene/Grooming, Family Aftercare Safety Plan - Discharge Discharge Criteria: Free of Suicidal thoughts, Free of paranoid thoughts, Free of agitation, Normal sleep pattern, Ability to care for self - Additional Comments milieu, structure, supportive therapy depakote 500 mg three times a day for mood stabilzation cogentin 1 mg po tid and HS for EPS symptoms Risperdal 3mg tid ant hs for psychosis pt was on Prolixin in the past (10mg po bid), risperdal 3mg po bid, h/o being on depakote 500mg bid, trazodone 50mg hs, h/o trileptal 300mg bid, will consider to resume these meds accordingly when necessary medication was changed to haloperidol plus Benadryl plus Ativan every 6 hours by mouth and IM as needed d/w will f/u on labs SW evaluation for homelessness will monitor closely will give PRN medications. - Treatment Team Participation Patient/Family/SO Statement: milieu, structure, supportive therapy depakote 500 mg three times a day for mood stabilzation cogentin 1 mg po tid and HS for EPS symptoms Risperdal 3mg tid ant hs for psychosis pt was on Prolixin in the past (10mg po bid), risperdal 3mg po bid, h/o being on depakote 500mg bid, trazodone 50mg hs, h/o trileptal 300mg bid, will consider to resume these meds accordingly when necessary medication was changed to haloperidol plus Benadryl plus Ativan every 6 hours by mouth and IM as needed d/w will f/u on labs SW evaluation for homelessness will monitor closely will give PRN medications. <Raya Fleipe - Last Filed: 06/04/17 10:58> - Milieu Protocol Maintain good personal hygiene: daily Encourage regular showers, daily Remind patient to perform daily oral care, daily Assist patient to perform ADL's Maintain personal safety: every shift Educate patient to report safety concerns to staff, every shift Monitor environment for contraband/sharps Medication safety: Monitor for expected outcome, potential side effects: every shift, Assess barriers to learning: every shift, Assess readiness for medication education: every shift Discharge/Continuing Care - Education Needs Education Needs: Patient Medication, Patient Diagnosis/Disease Process, Patient Coping Skills, Patient Anger Management skills, Patient Community resources, Patient Activities of Daily Living, Patient Health Practices/Safety, Patient Personal Hygiene/Grooming <Mary Ellen Arenas - Last Filed: 06/04/17 13:55> - Diagnosis (1) Schizophrenia Status: Acute Interventions: 06/04/17 13:53 still psychotic, but less agitated fixed delusions meds compliance good Relapse prevention Reduction of symptoms Improve functional status Possible assertive community treatment Cognitive behavioral therapy Family intervention Possible social skill training as outpatient 06/04/17 13:54 (2) History of medical problems Status: Acute Interventions: 06/04/17 13:54 medical team saw pt Pt will be seen by medical team as needed Medications will be confirmed and resumed Additional consultation by specialists as needed Lab work as needed (CBC, CMP, TSH, free T4, UA, Urine test for females as needed) CXR as needed EKG Physical therapy valuation as needed
--- NOTE | 2017-06-04 13:57 | PCM.PYCHPN ---
Psychiatric Progress Note - Psychiatric Progress Note Patient seen today, length of contact: 30min Patient Chief Complaint: "you have to call me Juarez" Problems Identified/Issues Discussed: Suicide/ homicide prevention, past psychiatric h/o, current psychiatric symptoms , medical problems, risk/benefits and alternatives of medications, medications compliance, coping strategies, substance abuse h/o, relapse prevention, importance of follow up with psychiatrist and therapist, discharge plan. Medical Problems: electrolytes abnormalities, better now Diagnostic Results: 05/27/17 04:20 05/28/17 07:00 Lab Results 05/28/17 07:00: Sodium 141, Potassium 3.8, Chloride 108 H, Carbon Dioxide 26, Anion Gap 11, BUN 10, Creatinine 0.6, Est GFR ( Amer) > 60, Est GFR (Non- Af Amer) > 60, Random Glucose 83, Calcium 8.7 05/27/17 04:20: WBC 6.1, RBC 4.00, Hgb 12.5, Hct 36.9, MCV 92.3, MCH 31.3, MCHC 33.9, RDW 14.3, Plt Count 194, MPV 11.6 H 05/27/17 04:20: Alcohol, Quantitative < 10 05/27/17 04:20: Sodium 135, Potassium 3.2 L, Chloride 100, Carbon Dioxide 20 L, Anion Gap 18, BUN 13, Creatinine 0.7, Est GFR ( Amer) > 60, Est GFR (Non- Af Amer) > 60, Random Glucose 96, Calcium 9.5, Total Bilirubin 1.1, AST 21, ALT 26, Alkaline Phosphatase 68, Total Protein 6.8, Albumin 4.1, Globulin 2.7, Albumin/Globulin Ratio 1.5 Vital Signs Temp Pulse Pulse Resp BP Pulse Ox 05/27/17 17:55 60 18 05/27/17 08:00 78 16 122/61 98 05/27/17 05:30 70 16 112/68 97 05/27/17 03:30 98.2 F 65 18 107/64 95 Temp Pulse Resp BP Pulse Ox 97.8 F 100 H 20 96/60 L 98 05/29/17 07:41 05/29/17 15:00 05/29/17 07:41 05/29/17 15:00 05/27/17 08:00 Temp Pulse Resp BP Pulse Ox 97.8 F 100 H 20 96/60 L 98 05/29/17 07:41 05/29/17 15:00 05/29/17 07:41 05/29/17 15:00 05/27/17 08:00 Temp Pulse Resp BP Pulse Ox 97.8 F 83 20 98/63 L 98 05/29/17 07:41 05/31/17 16:30 05/29/17 07:41 05/31/17 16:30 05/27/17 08:00 Temp Pulse Resp BP Pulse Ox 98.2 F 68 20 96/55 L 98 06/02/17 06:33 06/02/17 06:33 06/02/17 06:33 06/02/17 06:33 05/27/17 08:00 Temp Pulse Resp BP Pulse Ox 98.2 F 68 20 96/55 L 98 06/02/17 06:33 06/02/17 06:33 06/02/17 06:33 06/02/17 06:33 05/27/17 08:00 Temp Pulse Resp BP Pulse Ox 98.2 F 68 20 96/55 L 98 06/02/17 06:33 06/02/17 06:33 06/02/17 06:33 06/02/17 06:33 05/27/17 08:00 DSM 5 Symptoms Update: shortly pt is 62yo Female, long and debilitated h/o mental illness, most likely schizophrenia spectrum disorder, multiple psychiatric admissions including [facility] under involuntary commitment, as well as to this hospital (most recent 2012), pt is homeless, was found in [facility], covered with feces, agitated, confused, psychotic, asked to bring her to [facility] because she was "suicidal", pt presented to be disorganized, agitated, needed to be medicated with Haldol in ED. Pt obviously needs further evaluation and stabilization, meds resumption and titration. patient was seen today at the treatment team meeting, patient is irritable, angry, grandiose, patient said that this remote mortgage underwriter should call patient "Juarez", pt has some minimal positive changes, pt is less agitated, compliance with meds good. Pt is still cursing, screaming, but no physical aggression. [facility] PACT attempted to speak 05/30/17, pt was screaming that she does not want to talk to them. as per staff, pt has good appetite and sleep, verbally abusive, no aggression. pt tolerates medications well, no side effects observed or reported, aims 0, no EPS Impression: schizophrenia versus schizoaffective disorder Medication Change: Yes (yesterday Risperdal increased to 3 mg 3 timesdaily) Medical Record Reviewed: Yes Consults ordered or reviewed: medical consult was called Mental Status Examination - Cognitive Function Orientation: Person Memory: Intact Attention: Poor Concentration: Poor Association: Loose Fund of Knowledge: Poor - Mood Mood: Depressed (angry), Other ("aaaaa leave me alone") - Affect Affect: Constricted (iincrease), Other (agitated, angry) - Speech Speech: Loud, Pressured - Formal Thought Process Formal Thought Process: Hallucinations, Delusions, Paranoia, Loosening of associations, Circumstantial - Suicidal Ideation Suicidal Ideation: No - Homicidal Ideation Homicidal Ideation: No Goal/Treatment Plan - Goal/Treatment Plan Need for Continued Stay: Remain at risks for inpatient hospitalization, Severe depression anxiety, Discharge may exacerbated symptoms, Severe functional impairment Progress Toward Problem(s) and Goals/Treatment Plan: milieu, structure, supportive therapy depakote 500 mg three times a day for mood stabilzation cogentin 1 mg po tid and HS for EPS symptoms Risperdal 3mg tid ant hs for psychosis pt was on Prolixin in the past (10mg po bid), risperdal 3mg po bid, h/o being on depakote 500mg bid, trazodone 50mg hs, h/o trileptal 300mg bid, will consider to resume these meds accordingly when necessary medication was changed to haloperidol plus Benadryl plus Ativan every 6 hours by mouth and IM as needed d/w will f/u on labs SW evaluation for homelessness will monitor closely will give PRN medications. Estimated Date of D/C: 06/06/17 (we'll monitor on daily basis)
--- NOTE | 2017-06-05 13:21 | PCM.PYCHPN ---
Psychiatric Progress Note - Psychiatric Progress Note Patient seen today, length of contact: 30min Patient Chief Complaint: "my name is Juarez" Problems Identified/Issues Discussed: Suicide/ homicide prevention, past psychiatric h/o, current psychiatric symptoms , medical problems, risk/benefits and alternatives of medications, medications compliance, coping strategies, substance abuse h/o, relapse prevention, importance of follow up with psychiatrist and therapist, discharge plan. Medical Problems: electrolytes abnormalities, better now Diagnostic Results: 05/27/17 04:20 05/28/17 07:00 Lab Results 05/28/17 07:00: Sodium 141, Potassium 3.8, Chloride 108 H, Carbon Dioxide 26, Anion Gap 11, BUN 10, Creatinine 0.6, Est GFR ( Amer) > 60, Est GFR (Non- Af Amer) > 60, Random Glucose 83, Calcium 8.7 05/27/17 04:20: WBC 6.1, RBC 4.00, Hgb 12.5, Hct 36.9, MCV 92.3, MCH 31.3, MCHC 33.9, RDW 14.3, Plt Count 194, MPV 11.6 H 05/27/17 04:20: Alcohol, Quantitative < 10 05/27/17 04:20: Sodium 135, Potassium 3.2 L, Chloride 100, Carbon Dioxide 20 L, Anion Gap 18, BUN 13, Creatinine 0.7, Est GFR ( Amer) > 60, Est GFR (Non- Af Amer) > 60, Random Glucose 96, Calcium 9.5, Total Bilirubin 1.1, AST 21, ALT 26, Alkaline Phosphatase 68, Total Protein 6.8, Albumin 4.1, Globulin 2.7, Albumin/Globulin Ratio 1.5 Vital Signs Temp Pulse Pulse Resp BP Pulse Ox 05/27/17 17:55 60 18 05/27/17 08:00 78 16 122/61 98 05/27/17 05:30 70 16 112/68 97 05/27/17 03:30 98.2 F 65 18 107/64 95 Temp Pulse Resp BP Pulse Ox 97.8 F 100 H 20 96/60 L 98 05/29/17 07:41 05/29/17 15:00 05/29/17 07:41 05/29/17 15:00 05/27/17 08:00 Temp Pulse Resp BP Pulse Ox 97.8 F 100 H 20 96/60 L 98 05/29/17 07:41 05/29/17 15:00 05/29/17 07:41 05/29/17 15:00 05/27/17 08:00 Temp Pulse Resp BP Pulse Ox 97.8 F 83 20 98/63 L 98 05/29/17 07:41 05/31/17 16:30 05/29/17 07:41 05/31/17 16:30 05/27/17 08:00 Temp Pulse Resp BP Pulse Ox 98.2 F 68 20 96/55 L 98 06/02/17 06:33 06/02/17 06:33 06/02/17 06:33 06/02/17 06:33 05/27/17 08:00 Temp Pulse Resp BP Pulse Ox 98.2 F 68 20 96/55 L 98 06/02/17 06:33 06/02/17 06:33 06/02/17 06:33 06/02/17 06:33 05/27/17 08:00 Temp Pulse Resp BP Pulse Ox 98.2 F 68 20 96/55 L 98 06/02/17 06:33 06/02/17 06:33 06/02/17 06:33 06/02/17 06:33 05/27/17 08:00 DSM 5 Symptoms Update: shortly pt is 62yo Female, long and debilitated h/o mental illness, most likely schizophrenia spectrum disorder, multiple psychiatric admissions including [facility] under involuntary commitment, as well as to this hospital (most recent 2012), pt is homeless, was found in [facility], covered with feces, agitated, confused, psychotic, asked to bring her to [facility] because she was "suicidal", pt presented to be disorganized, agitated, needed to be medicated with Haldol in ED. Pt obviously needs further evaluation and stabilization, meds resumption and titration. patient was seen today in her room, was less irritable, even smiled back to this abstract writer, no agitation, but later on pt approached this abstract writer said "my name is Juarez, I am not Nasrin Junior, I wanted to help my sister that is why I took her name", pt is still delusional, psychotic. Pt is still cursing, screaming, but no physical aggression. [facility] PACT attempted to speak 05/30/17, pt was screaming that she does not want to talk to them. will call them back again. as per staff, pt has good appetite and sleep, verbally abusive, no aggression. pt tolerates medications well, no side effects observed or reported, aims 0, no EPS Impression: schizophrenia versus schizoaffective disorder Medication Change: No Medical Record Reviewed: Yes Consults ordered or reviewed: medical consult was called Mental Status Examination - Cognitive Function Orientation: Person Memory: Intact Attention: Poor Concentration: Poor Association: Loose Fund of Knowledge: Poor - Mood Mood: Depressed (angry), Other ("aaaaa leave me alone") - Affect Affect: Constricted (iincrease), Other (agitated, angry) - Speech Speech: Loud, Pressured - Formal Thought Process Formal Thought Process: Hallucinations, Delusions, Paranoia, Loosening of associations, Circumstantial - Suicidal Ideation Suicidal Ideation: No - Homicidal Ideation Homicidal Ideation: No Goal/Treatment Plan - Goal/Treatment Plan Need for Continued Stay: Remain at risks for inpatient hospitalization, Severe depression anxiety, Discharge may exacerbated symptoms, Severe functional impairment Progress Toward Problem(s) and Goals/Treatment Plan: milieu, structure, supportive therapy depakote 500 mg three times a day for mood stabilzation cogentin 1 mg po tid and HS for EPS symptoms Risperdal 3mg tid ant hs for psychosis pt was on Prolixin in the past (10mg po bid), risperdal 3mg po bid, h/o being on depakote 500mg bid, trazodone 50mg hs, h/o trileptal 300mg bid, will consider to resume these meds accordingly when necessary medication was changed to haloperidol plus Benadryl plus Ativan every 6 hours by mouth and IM as needed d/w will f/u on labs SW evaluation for homelessness will monitor closely will give PRN medications. Estimated Date of D/C: 06/13/17 (pt is still very psychotic, agitated at times)
--- NOTE | 2017-06-06 10:19 | PCM.PYCHPN ---
Psychiatric Progress Note - Psychiatric Progress Note Patient seen today, length of contact: 30min Patient Chief Complaint: "I feel sleepy, but thank you for checking up on me" Problems Identified/Issues Discussed: Suicide/ homicide prevention, past psychiatric h/o, current psychiatric symptoms , medical problems, risk/benefits and alternatives of medications, medications compliance, coping strategies, substance abuse h/o, relapse prevention, importance of follow up with psychiatrist and therapist, discharge plan. Medical Problems: electrolytes abnormalities, better now Diagnostic Results: 05/27/17 04:20 05/28/17 07:00 Lab Results 05/28/17 07:00: Sodium 141, Potassium 3.8, Chloride 108 H, Carbon Dioxide 26, Anion Gap 11, BUN 10, Creatinine 0.6, Est GFR ( Amer) > 60, Est GFR (Non- Af Amer) > 60, Random Glucose 83, Calcium 8.7 05/27/17 04:20: WBC 6.1, RBC 4.00, Hgb 12.5, Hct 36.9, MCV 92.3, MCH 31.3, MCHC 33.9, RDW 14.3, Plt Count 194, MPV 11.6 H 05/27/17 04:20: Alcohol, Quantitative < 10 05/27/17 04:20: Sodium 135, Potassium 3.2 L, Chloride 100, Carbon Dioxide 20 L, Anion Gap 18, BUN 13, Creatinine 0.7, Est GFR ( Amer) > 60, Est GFR (Non- Af Amer) > 60, Random Glucose 96, Calcium 9.5, Total Bilirubin 1.1, AST 21, ALT 26, Alkaline Phosphatase 68, Total Protein 6.8, Albumin 4.1, Globulin 2.7, Albumin/Globulin Ratio 1.5 Vital Signs Temp Pulse Pulse Resp BP Pulse Ox 05/27/17 17:55 60 18 05/27/17 08:00 78 16 122/61 98 05/27/17 05:30 70 16 112/68 97 05/27/17 03:30 98.2 F 65 18 107/64 95 Temp Pulse Resp BP Pulse Ox 97.8 F 100 H 20 96/60 L 98 05/29/17 07:41 05/29/17 15:00 05/29/17 07:41 05/29/17 15:00 05/27/17 08:00 Temp Pulse Resp BP Pulse Ox 97.8 F 100 H 20 96/60 L 98 05/29/17 07:41 05/29/17 15:00 05/29/17 07:41 05/29/17 15:00 05/27/17 08:00 Temp Pulse Resp BP Pulse Ox 97.8 F 83 20 98/63 L 98 05/29/17 07:41 05/31/17 16:30 05/29/17 07:41 05/31/17 16:30 05/27/17 08:00 Temp Pulse Resp BP Pulse Ox 98.2 F 68 20 96/55 L 98 06/02/17 06:33 06/02/17 06:33 06/02/17 06:33 06/02/17 06:33 05/27/17 08:00 Temp Pulse Resp BP Pulse Ox 98.2 F 68 20 96/55 L 98 06/02/17 06:33 06/02/17 06:33 06/02/17 06:33 06/02/17 06:33 05/27/17 08:00 Temp Pulse Resp BP Pulse Ox 98.2 F 68 20 96/55 L 98 06/02/17 06:33 06/02/17 06:33 06/02/17 06:33 06/02/17 06:33 05/27/17 08:00 Temp Pulse Resp BP Pulse Ox 98.2 F 68 20 96/55 L 98 06/02/17 06:33 06/02/17 06:33 06/02/17 06:33 06/02/17 06:33 05/27/17 08:00 DSM 5 Symptoms Update: shortly pt is 62yo Female, long and debilitated h/o mental illness, most likely schizophrenia spectrum disorder, multiple psychiatric admissions including [facility] under involuntary commitment, as well as to this hospital (most recent 2012), pt is homeless, was found in [facility], covered with feces, agitated, confused, psychotic, asked [place] [facility] [place] she was "[place]", pt presented to be disorganized, agitated, needed to be medicated with Haldol in ED. Pt obviously needs further evaluation and stabilization, meds resumption and titration. patient was seen today in her room, was less irritable, even smiled back to this newswriter, said "thank you" (which is very surprising from this pt). no agitation, but pt still disorganized, was talking to the TV and showing middle finger to the TV yesterday. pt also said "my name is Juarez, I am not Nasrin Pacheco, I wanted to help my sister that is why I took her name", pt is still delusional, psychotic. Pt is still cursing, screaming, but no physical aggression. [facility] PACT attempted to speak 05/30/17, pt was screaming that she does not want to talk to them. will call them back again. as per staff, pt has good appetite and sleep, verbally abusive, no aggression. pt tolerates medications well, no side effects observed or reported, aims 0, no EPS Impression: schizophrenia versus schizoaffective disorder Medication Change: No Medical Record Reviewed: Yes Consults ordered or reviewed: medical consult was called Mental Status Examination - Cognitive Function Orientation: Person Memory: Intact Attention: Poor Concentration: Poor Association: Loose Fund of Knowledge: Poor - Mood Mood: Depressed (angry), Other ("aaaaa leave me alone") - Affect Affect: Constricted (iincrease), Other (agitated, angry) - Speech Speech: Loud, Pressured - Formal Thought Process Formal Thought Process: Hallucinations, Delusions, Paranoia, Loosening of associations, Circumstantial - Suicidal Ideation Suicidal Ideation: No - Homicidal Ideation Homicidal Ideation: No Goal/Treatment Plan - Goal/Treatment Plan Need for Continued Stay: Remain at risks for inpatient hospitalization, Severe depression anxiety, Discharge may exacerbated symptoms, Severe functional impairment Progress Toward Problem(s) and Goals/Treatment Plan: milieu, structure, supportive therapy depakote 500 mg three times a day for mood stabilzation cogentin 1 mg po tid and HS for EPS symptoms Risperdal 3mg tid ant hs for psychosis pt was on Prolixin in the past (10mg po bid), risperdal 3mg po bid, h/o being on depakote 500mg bid, trazodone 50mg hs, h/o trileptal 300mg bid, will consider to resume these meds accordingly when necessary medication was changed to haloperidol plus Benadryl plus Ativan every 6 hours by mouth and IM as needed d/w will f/u on labs SW evaluation for homelessness will monitor closely will give PRN medications. Estimated Date of D/C: 06/13/17 (pt is still very psychotic, agitated at times)
--- NOTE | 2017-06-07 13:25 | PCM.PYCHPN ---
Psychiatric Progress Note - Psychiatric Progress Note Patient seen today, length of contact: 30min Patient Chief Complaint: "why everybody screaming through boone that I look good?" Problems Identified/Issues Discussed: Suicide/ homicide prevention, past psychiatric h/o, current psychiatric symptoms , medical problems, risk/benefits and alternatives of medications, medications compliance, coping strategies, substance abuse h/o, relapse prevention, importance of follow up with psychiatrist and therapist, discharge plan. Medical Problems: electrolytes abnormalities, better now Diagnostic Results: 05/27/17 04:20 05/28/17 07:00 Lab Results 05/28/17 07:00: Sodium 141, Potassium 3.8, Chloride 108 H, Carbon Dioxide 26, Anion Gap 11, BUN 10, Creatinine 0.6, Est GFR ( Amer) > 60, Est GFR (Non- Af Amer) > 60, Random Glucose 83, Calcium 8.7 05/27/17 04:20: WBC 6.1, RBC 4.00, Hgb 12.5, Hct 36.9, MCV 92.3, MCH 31.3, MCHC 33.9, RDW 14.3, Plt Count 194, MPV 11.6 H 05/27/17 04:20: Alcohol, Quantitative < 10 05/27/17 04:20: Sodium 135, Potassium 3.2 L, Chloride 100, Carbon Dioxide 20 L, Anion Gap 18, BUN 13, Creatinine 0.7, Est GFR ( Amer) > 60, Est GFR (Non- Af Amer) > 60, Random Glucose 96, Calcium 9.5, Total Bilirubin 1.1, AST 21, ALT 26, Alkaline Phosphatase 68, Total Protein 6.8, Albumin 4.1, Globulin 2.7, Albumin/Globulin Ratio 1.5 Vital Signs Temp Pulse Pulse Resp BP Pulse Ox 05/27/17 17:55 60 18 05/27/17 08:00 78 16 122/61 98 05/27/17 05:30 70 16 112/68 97 05/27/17 03:30 98.2 F 65 18 107/64 95 Temp Pulse Resp BP Pulse Ox 97.8 F 100 H 20 96/60 L 98 05/29/17 07:41 05/29/17 15:00 05/29/17 07:41 05/29/17 15:00 05/27/17 08:00 Temp Pulse Resp BP Pulse Ox 97.8 F 100 H 20 96/60 L 98 05/29/17 07:41 05/29/17 15:00 05/29/17 07:41 05/29/17 15:00 05/27/17 08:00 Temp Pulse Resp BP Pulse Ox 97.8 F 83 20 98/63 L 98 05/29/17 07:41 05/31/17 16:30 05/29/17 07:41 05/31/17 16:30 05/27/17 08:00 Temp Pulse Resp BP Pulse Ox 98.2 F 68 20 96/55 L 98 06/02/17 06:33 06/02/17 06:33 06/02/17 06:33 06/02/17 06:33 05/27/17 08:00 Temp Pulse Resp BP Pulse Ox 98.2 F 68 20 96/55 L 98 06/02/17 06:33 06/02/17 06:33 06/02/17 06:33 06/02/17 06:33 05/27/17 08:00 Temp Pulse Resp BP Pulse Ox 98.2 F 68 20 96/55 L 98 06/02/17 06:33 06/02/17 06:33 06/02/17 06:33 06/02/17 06:33 05/27/17 08:00 Temp Pulse Resp BP Pulse Ox 98.2 F 68 20 96/55 L 98 06/02/17 06:33 06/02/17 06:33 06/02/17 06:33 06/02/17 06:33 05/27/17 08:00 DSM 5 Symptoms Update: shortly pt is 62yo Female, long and debilitated h/o mental illness, most likely schizophrenia spectrum disorder, multiple psychiatric admissions including [facility] under involuntary commitment, as well as to this hospital (most recent 2012), pt is homeless, was found in [facility], covered with feces, agitated, confused, psychotic, asked to bring her to [facility] because she was "suicidal", pt presented to be disorganized, agitated, needed to be medicated with Haldol in ED. Pt obviously needs further evaluation and stabilization, meds resumption and titration. patient was seen today next to the nursing station "why everybody screaming through boone that I look good?" (pt is psychotic, nobody is screaming), pt was less irritable, even smiled back to this tech writer, said "thank you" (which is very surprising from this pt). no agitation, but pt still disorganized. at times cursing, but not loud. [facility] PACT attempted to speak 05/30/17, pt was screaming that she does not want to talk to them. will call them back again. as per staff, pt has good appetite and sleep, verbally abusive, no aggression. pt tolerates medications well, no side effects observed or reported, aims 0, no EPS Impression: schizophrenia versus schizoaffective disorder Medication Change: Yes (will increase risperdal) Medical Record Reviewed: Yes Consults ordered or reviewed: medical consult was called Mental Status Examination - Cognitive Function Orientation: Person Memory: Intact Attention: Poor (some improvement) Concentration: Poor (some improvement) Association: Loose Fund of Knowledge: Poor - Mood Mood: Depressed ("I am fine"), Other (pt is irritable) - Affect Affect: Constricted (iincrease), Other (agitated, angry) - Speech Speech: Loud, Pressured - Formal Thought Process Formal Thought Process: Hallucinations, Delusions, Paranoia, Loosening of associations, Circumstantial - Suicidal Ideation Suicidal Ideation: No - Homicidal Ideation Homicidal Ideation: No Goal/Treatment Plan - Goal/Treatment Plan Need for Continued Stay: Remain at risks for inpatient hospitalization, Severe depression anxiety, Discharge may exacerbated symptoms, Severe functional impairment Progress Toward Problem(s) and Goals/Treatment Plan: milieu, structure, supportive therapy depakote 500 mg three times a day for mood stabilzation cogentin 1 mg po tid and HS for EPS symptoms Risperdal 3mg bid and 4mg hs for psychosis pt was on Prolixin in the past (10mg po bid), risperdal 3mg po bid, h/o being on depakote 500mg bid, trazodone 50mg hs, h/o trileptal 300mg bid, will consider to resume these meds accordingly when necessary medication was changed to haloperidol plus Benadryl plus Ativan every 6 hours by mouth and IM as needed d/w will f/u on labs SW evaluation for homelessness will monitor closely will give PRN medications. Estimated Date of D/C: 06/13/17 (pt is still very psychotic, agitated at times)
--- NOTE | 2017-06-08 11:52 | PCM.PYCHPN ---
Psychiatric Progress Note - Psychiatric Progress Note Patient seen today, length of contact: 30min Patient Chief Complaint: "your medications is messing me up, I am not Nasrin, I was born as a male, but they chopped off my thing..." Problems Identified/Issues Discussed: Suicide/ homicide prevention, past psychiatric h/o, current psychiatric symptoms , medical problems, risk/benefits and alternatives of medications, medications compliance, coping strategies, substance abuse h/o, relapse prevention, importance of follow up with psychiatrist and therapist, discharge plan. Medical Problems: electrolytes abnormalities, better now Diagnostic Results: 05/27/17 04:20 05/28/17 07:00 Lab Results 05/28/17 07:00: Sodium 141, Potassium 3.8, Chloride 108 H, Carbon Dioxide 26, Anion Gap 11, BUN 10, Creatinine 0.6, Est GFR ( Amer) > 60, Est GFR (Non- Af Amer) > 60, Random Glucose 83, Calcium 8.7 05/27/17 04:20: WBC 6.1, RBC 4.00, Hgb 12.5, Hct 36.9, MCV 92.3, MCH 31.3, MCHC 33.9, RDW 14.3, Plt Count 194, MPV 11.6 H 05/27/17 04:20: Alcohol, Quantitative < 10 05/27/17 04:20: Sodium 135, Potassium 3.2 L, Chloride 100, Carbon Dioxide 20 L, Anion Gap 18, BUN 13, Creatinine 0.7, Est GFR ( Amer) > 60, Est GFR (Non- Af Amer) > 60, Random Glucose 96, Calcium 9.5, Total Bilirubin 1.1, AST 21, ALT 26, Alkaline Phosphatase 68, Total Protein 6.8, Albumin 4.1, Globulin 2.7, Albumin/Globulin Ratio 1.5 Vital Signs Temp Pulse Pulse Resp BP Pulse Ox 05/27/17 17:55 60 18 05/27/17 08:00 78 16 122/61 98 05/27/17 05:30 70 16 112/68 97 05/27/17 03:30 98.2 F 65 18 107/64 95 Temp Pulse Resp BP Pulse Ox 97.8 F 100 H 20 96/60 L 98 05/29/17 07:41 05/29/17 15:00 05/29/17 07:41 05/29/17 15:00 05/27/17 08:00 Temp Pulse Resp BP Pulse Ox 97.8 F 100 H 20 96/60 L 98 05/29/17 07:41 05/29/17 15:00 05/29/17 07:41 05/29/17 15:00 05/27/17 08:00 Temp Pulse Resp BP Pulse Ox 97.8 F 83 20 98/63 L 98 05/29/17 07:41 05/31/17 16:30 05/29/17 07:41 05/31/17 16:30 05/27/17 08:00 Temp Pulse Resp BP Pulse Ox 98.2 F 68 20 96/55 L 98 06/02/17 06:33 06/02/17 06:33 06/02/17 06:33 06/02/17 06:33 05/27/17 08:00 Temp Pulse Resp BP Pulse Ox 98.2 F 68 20 96/55 L 98 06/02/17 06:33 06/02/17 06:33 06/02/17 06:33 06/02/17 06:33 05/27/17 08:00 Temp Pulse Resp BP Pulse Ox 98.2 F 68 20 96/55 L 98 06/02/17 06:33 06/02/17 06:33 06/02/17 06:33 06/02/17 06:33 05/27/17 08:00 Temp Pulse Resp BP Pulse Ox 98.2 F 68 20 96/55 L 98 06/02/17 06:33 06/02/17 06:33 06/02/17 06:33 06/02/17 06:33 05/27/17 08:00 DSM 5 Symptoms Update: shortly pt is 62yo Female, long and debilitated h/o mental illness, most likely schizophrenia spectrum disorder, multiple psychiatric admissions including [facility] under involuntary commitment, as well as to this hospital (most recent 2012), pt is homeless, was found in [facility], covered with feces, agitated, confused, psychotic, asked to bring her to [facility] [place] because she was "suicidal", pt presented to be disorganized, agitated, needed to be medicated with Haldol in ED. Pt obviously needs further evaluation and stabilization, meds resumption and titration. patient was seen today next to the nursing station, hygiene is much better, pt is more polite, could say "thank you very much Doctor", in a few seconds pt could curse at her. pt has no period of agitation, compliance with meds good, at the same time pt has no insight into her mental illness, pt said "your medications is messing me up, I am not Nasrin, I was born as a male, but they chopped off my thing...". from this grant writer impression pt reached her maximum improvement, pt has delusions and disorganized speech, but it is tx resistant and most likely permanent. [facility] PACT attempted to speak 05/30/17, pt was screaming that she does not want to talk to them. will call them back again. as per staff, pt has good appetite and sleep, verbally abusive, no aggression. pt tolerates medications well, no side effects observed or reported, aims 0, no EPS Impression: schizophrenia versus schizoaffective disorder Medication Change: No (will increase risperdal ysterday) Medical Record Reviewed: Yes Consults ordered or reviewed: medical consult was called Mental Status Examination - Cognitive Function Orientation: Person Memory: Intact Attention: Poor (some improvement) Concentration: Poor (some improvement) Association: Loose Fund of Knowledge: Poor - Mood Mood: Depressed ("I am fine"), Other (pt is irritable) - Affect Affect: Constricted (iincrease), Other (agitated, angry) - Speech Speech: Loud, Pressured - Formal Thought Process Formal Thought Process: Hallucinations, Delusions, Paranoia, Loosening of associations, Circumstantial - Suicidal Ideation Suicidal Ideation: No - Homicidal Ideation Homicidal Ideation: No Goal/Treatment Plan - Goal/Treatment Plan Need for Continued Stay: Remain at risks for inpatient hospitalization, Severe depression anxiety, Discharge may exacerbated symptoms, Severe functional impairment Progress Toward Problem(s) and Goals/Treatment Plan: milieu, structure, supportive therapy depakote 500 mg three times a day for mood stabilzation cogentin 1 mg po tid and HS for EPS symptoms Risperdal 3mg bid and 4mg hs for psychosis pt was on Prolixin in the past (10mg po bid), risperdal 3mg po bid, h/o being on depakote 500mg bid, trazodone 50mg hs, h/o trileptal 300mg bid, will consider to resume these meds accordingly when necessary medication was changed to haloperidol plus Benadryl plus Ativan every 6 hours by mouth and IM as needed d/w will f/u on labs SW evaluation for homelessness will monitor closely will give PRN medications. will call PACT team again Estimated Date of D/C: 06/13/17 (pt is still very psychotic, agitated at times)
--- NOTE | 2017-06-09 13:53 | PCM.PYCHPN ---
Psychiatric Progress Note - Psychiatric Progress Note Patient seen today, length of contact: 30min Patient Chief Complaint: "thank you doctor" Problems Identified/Issues Discussed: Suicide/ homicide prevention, past psychiatric h/o, current psychiatric symptoms , medical problems, risk/benefits and alternatives of medications, medications compliance, coping strategies, substance abuse h/o, relapse prevention, importance of follow up with psychiatrist and therapist, discharge plan. Medical Problems: electrolytes abnormalities, better now Diagnostic Results: 05/27/17 04:20 05/28/17 07:00 Lab Results 05/28/17 07:00: Sodium 141, Potassium 3.8, Chloride 108 H, Carbon Dioxide 26, Anion Gap 11, BUN 10, Creatinine 0.6, Est GFR ( Amer) > 60, Est GFR (Non- Af Amer) > 60, Random Glucose 83, Calcium 8.7 05/27/17 04:20: WBC 6.1, RBC 4.00, Hgb 12.5, Hct 36.9, MCV 92.3, MCH 31.3, MCHC 33.9, RDW 14.3, Plt Count 194, MPV 11.6 H 05/27/17 04:20: Alcohol, Quantitative < 10 05/27/17 04:20: Sodium 135, Potassium 3.2 L, Chloride 100, Carbon Dioxide 20 L, Anion Gap 18, BUN 13, Creatinine 0.7, Est GFR ( Amer) > 60, Est GFR (Non- Af Amer) > 60, Random Glucose 96, Calcium 9.5, Total Bilirubin 1.1, AST 21, ALT 26, Alkaline Phosphatase 68, Total Protein 6.8, Albumin 4.1, Globulin 2.7, Albumin/Globulin Ratio 1.5 Vital Signs Temp Pulse Pulse Resp BP Pulse Ox 05/27/17 17:55 60 18 05/27/17 08:00 78 16 122/61 98 05/27/17 05:30 70 16 112/68 97 05/27/17 03:30 98.2 F 65 18 107/64 95 Temp Pulse Resp BP Pulse Ox 97.8 F 100 H 20 96/60 L 98 05/29/17 07:41 05/29/17 15:00 05/29/17 07:41 05/29/17 15:00 05/27/17 08:00 Temp Pulse Resp BP Pulse Ox 97.8 F 100 H 20 96/60 L 98 05/29/17 07:41 05/29/17 15:00 05/29/17 07:41 05/29/17 15:00 05/27/17 08:00 Temp Pulse Resp BP Pulse Ox 97.8 F 83 20 98/63 L 98 05/29/17 07:41 05/31/17 16:30 05/29/17 07:41 05/31/17 16:30 05/27/17 08:00 Temp Pulse Resp BP Pulse Ox 98.2 F 68 20 96/55 L 98 06/02/17 06:33 06/02/17 06:33 06/02/17 06:33 06/02/17 06:33 05/27/17 08:00 Temp Pulse Resp BP Pulse Ox 98.2 F 68 20 96/55 L 98 06/02/17 06:33 06/02/17 06:33 06/02/17 06:33 06/02/17 06:33 05/27/17 08:00 Temp Pulse Resp BP Pulse Ox 98.2 F 68 20 96/55 L 98 06/02/17 06:33 06/02/17 06:33 06/02/17 06:33 06/02/17 06:33 05/27/17 08:00 Temp Pulse Resp BP Pulse Ox 98.2 F 68 20 96/55 L 98 06/02/17 06:33 06/02/17 06:33 06/02/17 06:33 06/02/17 06:33 05/27/17 08:00 Temp Pulse Resp BP Pulse Ox 97.7 F 72 20 112/65 98 06/08/17 07:36 06/08/17 16:29 06/02/17 06:33 06/08/17 16:29 05/27/17 08:00 DSM 5 Symptoms Update: shortly pt is 62yo Female, long and debilitated h/o mental illness, most likely schizophrenia spectrum disorder, multiple psychiatric admissions including [facility] involuntary commitment, as well as to this hospital (most recent 2012), [facility], [facility] with [facility], agitated, confused, psychotic, asked to bring her to [facility] because she was "suicidal", pt presented to be disorganized, agitated, needed to be medicated with Haldol in ED. Pt obviously needs further evaluation and stabilization, meds resumption and titration. patient was seen today next to the nursing station, hygiene is much better, pt is more polite, could say "thank you very much Doctor". pt has no period of agitation, compliance with meds good, at the same time pt has no insight into her mental illness, yesterday pt said "your medications is messing me up, I am not Nasrin, I was born as a male, but they chopped off my thing...". from this screen writer impression pt reached her maximum improvement, pt has delusions and disorganized speech, but it is tx resistant and most likely permanent. [facility] PACT attempted to speak 05/30/17, pt was screaming that she does not want to talk to them. will call them back again, discussed with the social worke 06/09/2017 as per staff, pt has good appetite and sleep, verbally abusive, no aggression. pt tolerates medications well, no side effects observed or reported, aims 0, no EPS Impression: schizophrenia versus schizoaffective disorder Medication Change: No Medical Record Reviewed: Yes Consults ordered or reviewed: medical consult was called Mental Status Examination - Cognitive Function Orientation: Person Memory: Intact Attention: Poor (some improvement) Concentration: Poor (some improvement) Association: Loose Fund of Knowledge: Poor - Mood Mood: Depressed ("I am fine"), Other (pt is irritable) - Affect Affect: Constricted (but reactive, pt is more pleasant), Other (agitated, angry) - Speech Speech: Loud, Pressured - Formal Thought Process Formal Thought Process: Hallucinations (improving), Delusions (improving), Paranoia (improving), Loosening of associations (improving) - Suicidal Ideation Suicidal Ideation: No - Homicidal Ideation Homicidal Ideation: No Goal/Treatment Plan - Goal/Treatment Plan Need for Continued Stay: Remain at risks for inpatient hospitalization, Severe depression anxiety, Discharge may exacerbated symptoms, Severe functional impairment Progress Toward Problem(s) and Goals/Treatment Plan: milieu, structure, supportive therapy depakote 500 mg three times a day for mood stabilzation cogentin 1 mg po tid and HS for EPS symptoms Risperdal 3mg bid and 4mg hs for psychosis pt was on Prolixin in the past (10mg po bid), risperdal 3mg po bid, h/o being on depakote 500mg bid, trazodone 50mg hs, h/o trileptal 300mg bid, will consider to resume these meds accordingly when necessary medication was changed to haloperidol plus Benadryl plus Ativan every 6 hours by mouth and IM as needed d/w will f/u on labs SW evaluation for homelessness will monitor closely will give PRN medications. will call PACT team again, schedule interview Estimated Date of D/C: 06/13/17 (pt is still very psychotic, agitated at times)
--- NOTE | 2017-06-10 15:45 | PCM.PYCHPN ---
Psychiatric Progress Note - Psychiatric Progress Note Patient seen today, length of contact: 30min Patient Chief Complaint: "you promised to let me go on Friday..." Problems Identified/Issues Discussed: Suicide/ homicide prevention, past psychiatric h/o, current psychiatric symptoms , medical problems, risk/benefits and alternatives of medications, medications compliance, coping strategies, substance abuse h/o, relapse prevention, importance of follow up with psychiatrist and therapist, discharge plan. Medical Problems: electrolytes abnormalities, better now Diagnostic Results: 05/27/17 04:20 05/28/17 07:00 Lab Results 05/28/17 07:00: Sodium 141, Potassium 3.8, Chloride 108 H, Carbon Dioxide 26, Anion Gap 11, BUN 10, Creatinine 0.6, Est GFR ( Amer) > 60, Est GFR (Non- Af Amer) > 60, Random Glucose 83, Calcium 8.7 05/27/17 04:20: WBC 6.1, RBC 4.00, Hgb 12.5, Hct 36.9, MCV 92.3, MCH 31.3, MCHC 33.9, RDW 14.3, Plt Count 194, MPV 11.6 H 05/27/17 04:20: Alcohol, Quantitative < 10 05/27/17 04:20: Sodium 135, Potassium 3.2 L, Chloride 100, Carbon Dioxide 20 L, Anion Gap 18, BUN 13, Creatinine 0.7, Est GFR ( Amer) > 60, Est GFR (Non- Af Amer) > 60, Random Glucose 96, Calcium 9.5, Total Bilirubin 1.1, AST 21, ALT 26, Alkaline Phosphatase 68, Total Protein 6.8, Albumin 4.1, Globulin 2.7, Albumin/Globulin Ratio 1.5 Vital Signs Temp Pulse Pulse Resp BP Pulse Ox 05/27/17 17:55 60 18 05/27/17 08:00 78 16 122/61 98 05/27/17 05:30 70 16 112/68 97 05/27/17 03:30 98.2 F 65 18 107/64 95 Temp Pulse Resp BP Pulse Ox 97.8 F 100 H 20 96/60 L 98 05/29/17 07:41 05/29/17 15:00 05/29/17 07:41 05/29/17 15:00 05/27/17 08:00 Temp Pulse Resp BP Pulse Ox 97.8 F 100 H 20 96/60 L 98 05/29/17 07:41 05/29/17 15:00 05/29/17 07:41 05/29/17 15:00 05/27/17 08:00 Temp Pulse Resp BP Pulse Ox 97.8 F 83 20 98/63 L 98 05/29/17 07:41 05/31/17 16:30 05/29/17 07:41 05/31/17 16:30 05/27/17 08:00 Temp Pulse Resp BP Pulse Ox 98.2 F 68 20 96/55 L 98 06/02/17 06:33 06/02/17 06:33 06/02/17 06:33 06/02/17 06:33 05/27/17 08:00 Temp Pulse Resp BP Pulse Ox 98.2 F 68 20 96/55 L 98 06/02/17 06:33 06/02/17 06:33 06/02/17 06:33 06/02/17 06:33 05/27/17 08:00 Temp Pulse Resp BP Pulse Ox 98.2 F 68 20 96/55 L 98 06/02/17 06:33 06/02/17 06:33 06/02/17 06:33 06/02/17 06:33 05/27/17 08:00 Temp Pulse Resp BP Pulse Ox 98.2 F 68 20 96/55 L 98 06/02/17 06:33 06/02/17 06:33 06/02/17 06:33 06/02/17 06:33 05/27/17 08:00 Temp Pulse Resp BP Pulse Ox 97.7 F 72 20 112/65 98 06/08/17 07:36 06/08/17 16:29 06/02/17 06:33 06/08/17 16:29 05/27/17 08:00 Temp Pulse Resp BP Pulse Ox 97.7 F 95 H 20 124/105 H 98 06/08/17 07:36 06/09/17 16:00 06/02/17 06:33 06/09/17 16:00 05/27/17 08:00 DSM 5 Symptoms Update: shortly pt is 62yo Female, long and debilitated h/o mental illness, most likely schizophrenia spectrum disorder, multiple psychiatric admissions including [facility] under involuntary commitment, as well as to this hospital (most recent 2012), pt is homeless, was found in [facility], covered with feces, agitated, confused, psychotic, asked to bring her [place] [facility] [place] she was "[place]", pt presented to be disorganized, agitated, needed to be medicated with Haldol in ED. Pt obviously needs further evaluation and stabilization, meds resumption and titration. patient was seen today at the treatment team meeting room with social media analyst. Patient presented to be irrational at the beginning of the interview, was crying with no obvious reasons, patient said that "I wanted to be discharged on Friday, now I need to wait for another week" patient was not realizing that today is Friday. After reassurance, patient was able to calm down, was pleasant , corporative, at the same time patient thought processes disorganized, at present moment patient seems to have chronic disorganized of thoughts,from this senior medical writer perspective patient reached her maximum improvement, pt has delusions and disorganized speech, but it is tx resistant and most likely permanent. [facility] PACT attempted to speak 05/30/17, pt was screaming that she does not want to talk to them. will call them back again, discussed with the social work care today, will call [facility] again. as per staff, pt has good appetite and sleep, no aggression. pt tolerates medications well, no side effects observed or reported, aims 0, no EPS Impression: schizophrenia versus schizoaffective disorder Medication Change: No Medical Record Reviewed: Yes Consults ordered or reviewed: medical consult was called Mental Status Examination - Cognitive Function Orientation: Person Memory: Intact Attention: Poor (some improvement) Concentration: Poor (some improvement) Association: Loose Fund of Knowledge: Poor - Mood Mood: Depressed ("I am fine"), Other (pt is irritable) - Affect Affect: Constricted (but reactive, pt is more pleasant), Other (agitated, angry) - Speech Speech: Loud, Pressured - Formal Thought Process Formal Thought Process: Hallucinations (improving), Delusions (improving), Paranoia (improving), Loosening of associations (improving) - Suicidal Ideation Suicidal Ideation: No - Homicidal Ideation Homicidal Ideation: No Goal/Treatment Plan - Goal/Treatment Plan Need for Continued Stay: Remain at risks for inpatient hospitalization, Severe depression anxiety, Discharge may exacerbated symptoms, Severe functional impairment Progress Toward Problem(s) and Goals/Treatment Plan: milieu, structure, supportive therapy depakote 500 mg three times a day for mood stabilzation cogentin 1 mg po tid and HS for EPS symptoms Risperdal 3mg bid and 4mg hs for psychosis pt was on Prolixin in the past (10mg po bid), risperdal 3mg po bid, h/o being on depakote 500mg bid, trazodone 50mg hs, h/o trileptal 300mg bid, will consider to resume these meds accordingly when necessary medication was changed to haloperidol plus Benadryl plus Ativan every 6 hours by mouth and IM as needed d/w will f/u on labs SW evaluation for homelessness will monitor closely will give PRN medications. will call PACT team again, schedule interview Estimated Date of D/C: 06/13/17 (pt is still very psychotic, agitated at times)
[2017-06-11 07:19] VITALS: TEMP 97.2
--- NOTE | 2017-06-11 15:50 | PCM.PYCHPN ---
Psychiatric Progress Note - Psychiatric Progress Note Patient seen today, length of contact: 30min Patient Chief Complaint: "I have opposite reaction on medications.." Problems Identified/Issues Discussed: Suicide/ homicide prevention, past psychiatric h/o, current psychiatric symptoms , medical problems, risk/benefits and alternatives of medications, medications compliance, coping strategies, substance abuse h/o, relapse prevention, importance of follow up with psychiatrist and therapist, discharge plan. Medical Problems: electrolytes abnormalities, better now Diagnostic Results: 05/27/17 04:20 05/28/17 07:00 Lab Results 05/28/17 07:00: Sodium 141, Potassium 3.8, Chloride 108 H, Carbon Dioxide 26, Anion Gap 11, BUN 10, Creatinine 0.6, Est GFR ( Amer) > 60, Est GFR (Non- Af Amer) > 60, Random Glucose 83, Calcium 8.7 05/27/17 04:20: WBC 6.1, RBC 4.00, Hgb 12.5, Hct 36.9, MCV 92.3, MCH 31.3, MCHC 33.9, RDW 14.3, Plt Count 194, MPV 11.6 H 05/27/17 04:20: Alcohol, Quantitative < 10 05/27/17 04:20: Sodium 135, Potassium 3.2 L, Chloride 100, Carbon Dioxide 20 L, Anion Gap 18, BUN 13, Creatinine 0.7, Est GFR ( Amer) > 60, Est GFR (Non- Af Amer) > 60, Random Glucose 96, Calcium 9.5, Total Bilirubin 1.1, AST 21, ALT 26, Alkaline Phosphatase 68, Total Protein 6.8, Albumin 4.1, Globulin 2.7, Albumin/Globulin Ratio 1.5 Vital Signs Temp Pulse Pulse Resp BP Pulse Ox 05/27/17 17:55 60 18 05/27/17 08:00 78 16 122/61 98 05/27/17 05:30 70 16 112/68 97 05/27/17 03:30 98.2 F 65 18 107/64 95 Temp Pulse Resp BP Pulse Ox 97.8 F 100 H 20 96/60 L 98 05/29/17 07:41 05/29/17 15:00 05/29/17 07:41 05/29/17 15:00 05/27/17 08:00 Temp Pulse Resp BP Pulse Ox 97.8 F 100 H 20 96/60 L 98 05/29/17 07:41 05/29/17 15:00 05/29/17 07:41 05/29/17 15:00 05/27/17 08:00 Temp Pulse Resp BP Pulse Ox 97.8 F 83 20 98/63 L 98 05/29/17 07:41 05/31/17 16:30 05/29/17 07:41 05/31/17 16:30 05/27/17 08:00 Temp Pulse Resp BP Pulse Ox 98.2 F 68 20 96/55 L 98 06/02/17 06:33 06/02/17 06:33 06/02/17 06:33 06/02/17 06:33 05/27/17 08:00 Temp Pulse Resp BP Pulse Ox 98.2 F 68 20 96/55 L 98 06/02/17 06:33 06/02/17 06:33 06/02/17 06:33 06/02/17 06:33 05/27/17 08:00 Temp Pulse Resp BP Pulse Ox 98.2 F 68 20 96/55 L 98 06/02/17 06:33 06/02/17 06:33 06/02/17 06:33 06/02/17 06:33 05/27/17 08:00 Temp Pulse Resp BP Pulse Ox 98.2 F 68 20 96/55 L 98 06/02/17 06:33 06/02/17 06:33 06/02/17 06:33 06/02/17 06:33 05/27/17 08:00 Temp Pulse Resp BP Pulse Ox 97.7 F 72 20 112/65 98 06/08/17 07:36 06/08/17 16:29 06/02/17 06:33 06/08/17 16:29 05/27/17 08:00 Temp Pulse Resp BP Pulse Ox 97.7 F 95 H 20 124/105 H 98 06/08/17 07:36 06/09/17 16:00 06/02/17 06:33 06/09/17 16:00 05/27/17 08:00 DSM 5 Symptoms Update: shortly pt is 62yo Female, long and debilitated h/o mental illness, most likely schizophrenia spectrum disorder, multiple psychiatric admissions including [facility] under involuntary commitment, as well as to this hospital (most recent 2012), pt is homeless, was found in [facility], covered with feces, agitated, confused, psychotic, asked to bring her to [facility] because she was "suicidal", pt presented to be disorganized, agitated, needed to be medicated with Haldol in ED. Pt obviously needs further evaluation and stabilization, meds resumption and titration. patient was seen today at the treatment team meeting room. as per nursing report patient needed to be medicated today at the morning time with the Haldol by mouth. Patient presented to be irrational at the beginning of the interview, Said that she has adverse reaction on Haldol, there is no adverse reaction observed by this magazine writer, later on patient became tearful, reported that she needs to eat. Patient was seen by high school social science teacher, patient SSD was suspended because patient replied for the mail. See high school social science teacher note for more detailed information patient seems to have chronic disorganized of thoughts,from this magazine writer perspective patient reached her maximum improvement, pt has delusions and disorganized speech, but it is tx resistant and most likely permanent. [facility] PACT attempted to speak 05/30/17, pt was screaming that she does not want to talk to them. patient currently is homeless, will be not followed by a pact team as per staff, pt has good appetite and sleep, no aggression. pt tolerates medications well, no side effects observed or reported, aims 0, no EPS Impression: schizophrenia versus schizoaffective disorder Medication Change: No Medical Record Reviewed: Yes Consults ordered or reviewed: medical consult was called Mental Status Examination - Cognitive Function Orientation: Person Memory: Intact Attention: Poor (some improvement) Concentration: Poor (some improvement) Association: Loose Fund of Knowledge: Poor - Mood Mood: Depressed ("I am fine"), Other (pt is irritable) - Affect Affect: Constricted (but reactive, pt is more pleasant), Other (agitated, angry) - Speech Speech: Loud, Pressured - Formal Thought Process Formal Thought Process: Hallucinations (improving), Delusions (improving), Paranoia (improving), Loosening of associations (improving) - Suicidal Ideation Suicidal Ideation: No - Homicidal Ideation Homicidal Ideation: No Goal/Treatment Plan - Goal/Treatment Plan Need for Continued Stay: Remain at risks for inpatient hospitalization, Severe depression anxiety, Discharge may exacerbated symptoms, Severe functional impairment Progress Toward Problem(s) and Goals/Treatment Plan: milieu, structure, supportive therapy depakote 500 mg three times a day for mood stabilzation cogentin 1 mg po tid and HS for EPS symptoms Risperdal 3mg bid and 4mg hs for psychosis pt was on Prolixin in the past (10mg po bid), risperdal 3mg po bid, h/o being on depakote 500mg bid, trazodone 50mg hs, h/o trileptal 300mg bid, will consider to resume these meds accordingly when necessary medication was changed to haloperidol plus Benadryl plus Ativan every 6 hours by mouth and IM as needed d/w will f/u on labs SW evaluation for homelessness will monitor closely will give PRN medications. PACT team interviewed patient today, patient is homeless will be not excepted Estimated Date of D/C: 06/13/17 (pt is still very psychotic, agitated at times)
[2017-06-11 17:49] VITALS: BP 120/75; PULSE 78
--- NOTE | 2017-06-12 16:04 | PCM.PYCHPN ---
Psychiatric Progress Note - Psychiatric Progress Note Patient seen today, length of contact: 30min Patient Chief Complaint: "I am fine" Problems Identified/Issues Discussed: Suicide/ homicide prevention, past psychiatric h/o, current psychiatric symptoms , medical problems, risk/benefits and alternatives of medications, medications compliance, coping strategies, substance abuse h/o, relapse prevention, importance of follow up with psychiatrist and therapist, discharge plan. Medical Problems: electrolytes abnormalities, better now Diagnostic Results: 05/27/17 04:20 05/28/17 07:00 Lab Results 05/28/17 07:00: Sodium 141, Potassium 3.8, Chloride 108 H, Carbon Dioxide 26, Anion Gap 11, BUN 10, Creatinine 0.6, Est GFR ( Amer) > 60, Est GFR (Non- Af Amer) > 60, Random Glucose 83, Calcium 8.7 05/27/17 04:20: WBC 6.1, RBC 4.00, Hgb 12.5, Hct 36.9, MCV 92.3, MCH 31.3, MCHC 33.9, RDW 14.3, Plt Count 194, MPV 11.6 H 05/27/17 04:20: Alcohol, Quantitative < 10 05/27/17 04:20: Sodium 135, Potassium 3.2 L, Chloride 100, Carbon Dioxide 20 L, Anion Gap 18, BUN 13, Creatinine 0.7, Est GFR ( Amer) > 60, Est GFR (Non- Af Amer) > 60, Random Glucose 96, Calcium 9.5, Total Bilirubin 1.1, AST 21, ALT 26, Alkaline Phosphatase 68, Total Protein 6.8, Albumin 4.1, Globulin 2.7, Albumin/Globulin Ratio 1.5 Vital Signs Temp Pulse Pulse Resp BP Pulse Ox 05/27/17 17:55 60 18 05/27/17 08:00 78 16 122/61 98 05/27/17 05:30 70 16 112/68 97 05/27/17 03:30 98.2 F 65 18 107/64 95 Temp Pulse Resp BP Pulse Ox 97.8 F 100 H 20 96/60 L 98 05/29/17 07:41 05/29/17 15:00 05/29/17 07:41 05/29/17 15:00 05/27/17 08:00 Temp Pulse Resp BP Pulse Ox 97.8 F 100 H 20 96/60 L 98 05/29/17 07:41 05/29/17 15:00 05/29/17 07:41 05/29/17 15:00 05/27/17 08:00 Temp Pulse Resp BP Pulse Ox 97.8 F 83 20 98/63 L 98 05/29/17 07:41 05/31/17 16:30 05/29/17 07:41 05/31/17 16:30 05/27/17 08:00 Temp Pulse Resp BP Pulse Ox 98.2 F 68 20 96/55 L 98 06/02/17 06:33 06/02/17 06:33 06/02/17 06:33 06/02/17 06:33 05/27/17 08:00 Temp Pulse Resp BP Pulse Ox 98.2 F 68 20 96/55 L 98 06/02/17 06:33 06/02/17 06:33 06/02/17 06:33 06/02/17 06:33 05/27/17 08:00 Temp Pulse Resp BP Pulse Ox 98.2 F 68 20 96/55 L 98 06/02/17 06:33 06/02/17 06:33 06/02/17 06:33 06/02/17 06:33 05/27/17 08:00 Temp Pulse Resp BP Pulse Ox 98.2 F 68 20 96/55 L 98 06/02/17 06:33 06/02/17 06:33 06/02/17 06:33 06/02/17 06:33 05/27/17 08:00 Temp Pulse Resp BP Pulse Ox 97.7 F 72 20 112/65 98 06/08/17 07:36 06/08/17 16:29 06/02/17 06:33 06/08/17 16:29 05/27/17 08:00 Temp Pulse Resp BP Pulse Ox 97.7 F 95 H 20 124/105 H 98 06/08/17 07:36 06/09/17 16:00 06/02/17 06:33 06/09/17 16:00 05/27/17 08:00 DSM 5 Symptoms Update: shortly pt is 62yo Female, long and debilitated h/o mental illness, most likely schizophrenia spectrum disorder, multiple psychiatric admissions including [facility] under involuntary commitment, as well as to this hospital (most recent 2012), pt is homeless, was found in [facility], covered with feces, agitated, confused, psychotic, asked to bring her [place] [facility] because she was "suicidal", pt presented to be disorganized, agitated, needed to be medicated with Haldol in ED. Pt obviously needs further evaluation and stabilization, meds resumption and titration. patient was seen today in her room. pt is more pleasant, pt reached max effect from this hospitalization, ICMS will be not following pt, pt has no ID, pt needs to go to the office. [facility] PACT attempted to speak 05/30/17, pt was screaming that she does not want to talk to them. patient currently is homeless, will be not followed by a pact team. See social group worker note for more detailed information patient seems to have chronic disorganized of thoughts,from this account underwriter perspective patient reached her maximum improvement, pt has delusions and disorganized speech, but it is tx resistant and most likely permanent. as per staff, pt has good appetite and sleep, no aggression. pt tolerates medications well, no side effects observed or reported, aims 0, no EPS Impression: schizophrenia versus schizoaffective disorder Medication Change: No Medical Record Reviewed: Yes Mental Status Examination - Cognitive Function Orientation: Person Memory: Intact Attention: Poor (some improvement) Concentration: Poor (some improvement) Association: Loose Fund of Knowledge: Poor - Mood Mood: Depressed ("I am fine"), Other (pt is irritable) - Affect Affect: Constricted (but reactive, pt is more pleasant), Other (agitated, angry) - Speech Speech: Loud, Pressured - Formal Thought Process Formal Thought Process: Hallucinations (improving), Delusions (improving), Paranoia (improving), Loosening of associations (improving) - Suicidal Ideation Suicidal Ideation: No - Homicidal Ideation Homicidal Ideation: No Goal/Treatment Plan - Goal/Treatment Plan Need for Continued Stay: Remain at risks for inpatient hospitalization, Severe depression anxiety, Discharge may exacerbated symptoms, Severe functional impairment Progress Toward Problem(s) and Goals/Treatment Plan: milieu, structure, supportive therapy depakote 500 mg three times a day for mood stabilzation cogentin 1 mg po tid and HS for EPS symptoms Risperdal 3mg bid and 4mg hs for psychosis pt was on Prolixin in the past (10mg po bid), risperdal 3mg po bid, h/o being on depakote 500mg bid, trazodone 50mg hs, h/o trileptal 300mg bid, will consider to resume these meds accordingly when necessary medication was changed to haloperidol plus Benadryl plus Ativan every 6 hours by mouth and IM as needed d/w will f/u on labs SW evaluation for homelessness will monitor closely will give PRN medications. PACT will be not f/u pt in the community ICMS will be not f/u t in the community Estimated Date of D/C: 06/13/17 (pt is still very psychotic, agitated at times)
--- NOTE | 2017-06-13 16:19 | PCM.PYCHDC ---
Mental Status Examination - Mental Status Examination Orientation: Person, Place, Situation, Time Memory: Intact Mood: Neutral Affect: Constricted (but reactive mood congruent) Speech: Appropriate (at times could be allowed) Attention: WNL Concentration: WNL Association: WNL Fund of Knowledge: WNL Formal Thought Process: Delusions (chronic, treatment resistant) Description of patient's judgement and insight: Pt has improved insight into mental and medical illness, pt was compliant with medications and unit rules and regulations, pt was going to groups, was calm, cooperative, socially appropriate, no behavioral incidents, no agitation, no aggression. Psychotic Thoughts and Behaviors: Pt denied v/a/t hallucinations, denied paranoid ideations, pt does not appear to be psychotic, and thought process is goal directed. Suicidal Ideation: No Current Homicidal Ideation?: No Plan: pt adamantly denied thoughts of harming self or others denied intent or plan. Discharge Summary - Discharge Note Reason for Hospitalization: pt was admitted for evaluation of psychosis, inability to function, was disorganized in the community, was covered with feces, patient was agitated, was not able to take care of herself. Psychiatric History (includes Medical, Family, Personal Hx): see HPI Laboratory Data: 05/27/17 04:20 05/28/17 07:00 Lab Results 05/28/17 07:00: Sodium 141, Potassium 3.8, Chloride 108 H, Carbon Dioxide 26, Anion Gap 11, BUN 10, Creatinine 0.6, Est GFR ( Amer) > 60, Est GFR (Non- Af Amer) > 60, Random Glucose 83, Calcium 8.7 05/27/17 04:20: WBC 6.1, RBC 4.00, Hgb 12.5, Hct 36.9, MCV 92.3, MCH 31.3, MCHC 33.9, RDW 14.3, Plt Count 194, MPV 11.6 H 05/27/17 04:20: Alcohol, Quantitative < 10 05/27/17 04:20: Sodium 135, Potassium 3.2 L, Chloride 100, Carbon Dioxide 20 L, Anion Gap 18, BUN 13, Creatinine 0.7, Est GFR ( Amer) > 60, Est GFR (Non- Af Amer) > 60, Random Glucose 96, Calcium 9.5, Total Bilirubin 1.1, AST 21, ALT 26, Alkaline Phosphatase 68, Total Protein 6.8, Albumin 4.1, Globulin 2.7, Albumin/Globulin Ratio 1.5 Vital Signs Temp Pulse Pulse Resp BP Pulse Ox 06/11/17 16:00 78 120/75 06/11/17 07:19 97.2 F L 61 20 75/45 L 06/10/17 16:00 76 93/56 L 06/09/17 16:00 95 H 124/105 H 06/08/17 16:29 72 112/65 06/08/17 07:36 97.7 F 68 91/59 L 06/07/17 16:30 84 101/55 L 06/06/17 16:00 85 92/59 L 06/02/17 06:33 98.2 F 68 20 96/55 L 06/01/17 16:00 63 93/55 L 05/31/17 16:30 83 98/63 L 05/29/17 15:00 100 H 96/60 L 05/29/17 07:41 97.8 F 116 H 20 82/56 L 05/27/17 17:55 60 18 05/27/17 08:00 78 16 122/61 98 05/27/17 05:30 70 16 112/68 97 05/27/17 03:30 98.2 F 65 18 107/64 95 Consultations:: List each consultation separately and include: 1. Reason for request. 2. Findings. 3. Follow-up Consultations: medical consult was called please see notes for more detailed information Summary of Hospital Course include:: 1. Description of specific treatment plan utilized for patients during their course of treatmen. 2. Summarize the time- course for resolution of acute symptoms and/or regressed behaviors. 3. Describe issues identified and worked on during hospitalization. 4. Describe medication utilized. 5. Describe medical problems identified and treated. 6. Reassessment of suicide risk Summary of Hospital Course: shortly pt is 62yo Female, long and debilitated h/o mental illness, most likely schizophrenia spectrum disorder, multiple psychiatric admissions including [facility] under involuntary commitment, as well as to this hospital (most recent 2012), pt is homeless, was foung in [facility], covered with feces, agitated, confused, psychotic, asked to bring her [place] [facility] because she was "suicidal", pt presented to be disorganized, agitated, needed to be medicated with Haldol in ED. Pt obviously needs further evaluation and stabilization, meds resumption and titration. this wrier attempted to speak to the pt, pt presented to have very poor hygiene , poor ADLs most likely due to her psychosis, pt was agitated, was screaming out loud "A-[id number]_A_ you need to call me HINA, I am not psych patient, I need my potassium", pt also was screaming "A_A_[id number]_A_ I don't want to talk to the doctor, I did not sign myself A_A_A_A_A you will poison me...." there is not option to have a meaningful conversation with her. pt presented to be in danger to self and was not able to calm down, other patients were scared, pt was medicated with Thorazine 50mg IM with good response. pt obviously paranoid/psychotic/responding to internal stimuli. initially refused to take any meds, which were confirmed from the previous admission Past psychiatric h/o: patient has long history of mental illness, as per Dr. Escalera's note in 2012 patient had history of been admitted involuntary in [facility] , patient has chronic noncompliance with the medications nd follow-up appointments, patient was on the following medications: Risperdal 3 mg 2 times a day Cogentin 0.5 mg twice a day Depakote 750 mg at the morning time in 1000 mg at the nighttime pt denied smoking, denied alcohol consumption, denied using drugs, but it is ?, as per h/o pt has h/o substance use. past medical h/o: denied, K was low, K supplementation offered in ED, pt refused , now is screaming demanding to have meds. D/w . 05/27/17 04:20 05/27/17 04:20 Lab Results 05/27/17 04:20: WBC 6.1, RBC 4.00, Hgb 12.5, Hct 36.9, MCV 92.3, MCH 31.3, MCHC 33.9, RDW 14.3, Plt Count 194, MPV 11.6 H 05/27/17 04:20: Alcohol, Quantitative < 10 05/27/17 04:20: Sodium 135, Potassium 3.2 L, Chloride 100, Carbon Dioxide 20 L, Anion Gap 18, BUN 13, Creatinine 0.7, Est GFR ( Amer) > 60, Est GFR (Non- Af Amer) > 60, Random Glucose 96, Calcium 9.5, Total Bilirubin 1.1, AST 21, ALT 26, Alkaline Phosphatase 68, Total Protein 6.8, Albumin 4.1, Globulin 2.7, Albumin/Globulin Ratio 1.5 Vital Signs Temp Pulse Resp BP Pulse Ox 05/27/17 08:00 78 16 122/61 98 05/27/17 05:30 70 16 112/68 97 05/27/17 03:30 98.2 F 65 18 107/64 95 over the course of this hospitalization patient was stabilized on the following medication: depakote 500 mg three times a day for mood stabilzation cogentin 1 mg po tid and HS for EPS symptoms Risperdal 3mg bid and 4mg hs for psychosis meds for titrated slowly He shouldn't tolerated medications well, no side effects observed or reported, aims 0, no EPS. Patient had bizarre delusions that she was born as a mail, patient reported that her genitals were caught, and her real name is not Ms. Pacheco but Juarze Goldsmith. ppatient had. The agitation, aggression, needed to have frequent when necessary' s, but no physical aggression towards people. Overall patient improved significantly, patient became much calmer, compliance with the medication was good, personal hygiene is improved significantly, patient became more organized, but still has these delusions that her name is not Nasrin. ICMS worker was called, but patient was not except that because patient has history of noncompliance, patient is currently homeless does well PACT team also was called, patient will be not accepted under the services, because patient is homeless. Patient has no peace of identification, patient most likely has Social Security disability but patient needs to go to Social Security office in order to obtain her services again. See social science research assistant notes for more detailed information. Over the course of this hospitalization pt was attending groups, pt also had medication management, had therapeutic milieu. Overall pt improved significantly, pt's affect became brighter, psychosis improved, pt was socially appropriate, pts insight improved as well and soon pt deemed to be ready for discharge. At the time of the discharge pt denied been depressed, denied thoughts of harming self or others, denied psychotic symptoms, and pt does not appeared to be psychotic, denied been anxious, was considered to pose no threat to self or others, will be following up at outpatient program, [facility], information about follow up appointment, time and address provided to the pt, it is patient responsibility to follow up with outpatient clinic, PMD as well as specialists (see SW note for more detailed information). In case pt will need to obtain results of studies pending at discharge pt was provided with contact information of Psychiatric Inpatient unit [phone] as well as Medical Record Department [phone]. pt denied using drugs. pt was provided with prescriptions for all of medications (please see medication reconciliation form) Pt was educated about safety plan in case of worsening of symptoms or in case of suicidal or homicidal ideation call 911 or go to the nearest ER, also was educated to take meds as prescribed and stay away from drugs, pt verbalized understanding. - Diagnosis (1) Schizophrenia Status: Acute (2) History of medical problems Status: Acute - Final Diagnosis (DSM 5) Condition upon Discharge: STABLE Disposition: HOME/ ROUTINE Follow-up Treatment Plan: At the time of the discharge pt denied been depressed, denied thoughts of harming self or others, denied psychotic symptoms, and pt does not appeared to be psychotic, denied been anxious, was considered to pose no threat to self or others, will be following up at outpatient program, was [facility] to the [facility], information about follow up appointment, time and address provided to the pt, it is patient responsibility to follow up with outpatient clinic, PMD as well as specialists (see SW note for more detailed information). In case pt will need to obtain results of studies pending at discharge pt was provided with contact information of Psychiatric Inpatient unit [phone] as well as Medical Record Department [phone]. pt denied using drugs. pt was provided with prescriptions for all of medications (please see medication reconciliation form) Pt was educated about safety plan in case of worsening of symptoms or in case of suicidal or homicidal ideation call 911 or go to the nearest ER, also was educated to take meds as prescribed and stay away from drugs, pt verbalized understanding. Prescriptions/Medication Reconciliation: Benztropine [Cogentin] 1 mg PO HS #14 tab Benztropine [Cogentin] 1 mg PO BID #30 tab Divalproex [Depakote ER] 500 mg PO AMHS #30 ter Docusate [Colace] 100 mg PO BID #14 cap Famotidine [Pepcid] 20 mg PO HS #7 tab risperiDONE [RisperDAL Tab] 4 mg PO HS #30 tab risperiDONE [RisperDAL Tab] 3 mg PO BID #30 tab traZODone [Desyrel] 50 mg PO HS #14 tab - Smoking Cessation Smoking Cessation Medication prescribed: No Reason for not providing: denied smoking - Antipsychotic Medications Pt discharged on 2 or more routine antipsychotic medications: No
== END 2017-06-13 12:31 | disposition home or self-care (01) | DRG 885 ==
LOC: ED 03:29 → ERH 08:11 → PSYC 08:53
PROVIDERS: ADMIT Psychiatry & Neurology Psychiatry; ATTEND Psychiatry & Neurology Psychiatry
DX: F20.9 Schizophrenia, unspecified (principal); F22 Delusional disorders; E87.6 Hypokalemia; I71.4 Abdominal aortic aneurysm, without rupture; Z59.0 Homelessness; Z79.899 Other long term (current) drug therapy; Z87.891 Personal history of nicotine dependence; Z91.14 Patient's other noncompliance with medication regimen; Z91.83 Wandering in diseases classified elsewhere

== ENCOUNTER 2018-03-26 11:54 | Emergency (ER) | payer MEDICAID, OTHER ==
[2018-03-26 11:55] VITALS: BMI 18.6
[2018-03-26 12:06] VITALS: RESP 16; TEMP 98.6
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
--- NOTE | 2018-03-26 14:00 | RAD ---
PROCEDURE: Right Knee Radiographs. HISTORY: pain COMPARISON: None. FINDINGS: BONES: Normal. No fracture. JOINTS: Normal. No osteoarthritis. JOINT EFFUSION: None. OTHER FINDINGS: None. IMPRESSION: Normal radiographs of the right knee.
[2018-03-26 14:25] VITALS: BP 121/77; PULSE 88; O2SAT 99
== END 2018-03-26 14:28 | disposition home or self-care (01) ==
LOC: ED 11:54
DX: M17.11 Unilateral primary osteoarthritis, right knee (principal); M25.561 Pain in right knee

== ENCOUNTER 2018-04-02 15:16 | Emergency (ER) | payer MEDICAID ==
[2018-04-02 15:49] VITALS: BP 97/55; PULSE 83; RESP 18; TEMP 97.7; O2SAT 98; BMI 26.6
== END 2018-04-02 16:02 | disposition left against medical advice (07) ==
LOC: ED 15:16
DX: Z02.89 Encounter for other administrative examinations (principal); M54.9 Dorsalgia, unspecified